=== PATIENT | female | born 1985 | race Caucasian/White ===

== ENCOUNTER 2017-07-22 16:44 | Inpatient (IN) | payer SELFPAY ==
--- NOTE | 2017-07-22 16:53 | PDOC ---
Rapid Medical Evaluation Time Seen by Provider: 07/22/17 16:51 Medical Evaluation: Allergies Allergy/AdvReac Type Severity Reaction Status Date / Time No Known Allergies Allergy Verified 07/22/17 16:46 07/22/17 16:52 Pt c/o: ruq pain with nausea x 2hrs, hx gallstones, pt on exam: ruq pain, no cva tenderness Pt ordered for: labs, urine, ultrasound p to proceed to the ED Discharge Disposition - Diagnosis Abdominal pain - Referrals - Patient Instructions - Post Discharge Activity
[2017-07-22 16:56] VITALS: BMI 34.4
[2017-07-22 17:15] LABS: BASO % 0.7 % (0-2.0); EOS % 3.8 % (0-4.5); HEMATOCRIT 35.5 % (32.4-45.2); HEMOGLOBIN 12.2 GM/dL (10.7-15.3); LYMPH % 22.7 % (8-40); MCH 28.5 pg (25.7-33.7); MCHC 34.4 g/dl (32.0-36.0); MEAN CELL VOLUME 82.9 fl (80-96); MEAN PLT VOLUME 10.3 fl (7.5-11.1); MONO % 8.2 % (3.8-10.2); NEUT % 64.6 % (42.8-82.8); PLATELET COUNT 213 K/MM3 (134-434); RBC 4.29 M/mm3 (3.60-5.2)
[2017-07-22 17:45] LABS: ALBUMIN 3.9 g/dl (3.4-5.0); ANION GAP 10 (8-16); BLOOD UREA NITROGEN 14 mg/dL (7-18); CHLORIDE 104 mmol/L (98-107); CO2 28 mmol/L (21-32); CREATININE 0.7 mg/dL (0.55-1.02); GLUCOSE,RANDOM 129 mg/dL (74-106); POTASSIUM 3.6 mmol/L (3.5-5.1); SGOT/AST 207 U/L (15-37); SGPT/ALT 134 U/L (12-78); SODIUM 142 mmol/L (136-145)
[2017-07-22 17:47] LABS: ALK PHOS 98 U/L (45-117); BILIRUBIN,TOTAL 0.7 mg/dL (0.2-1.0); TOT PROT 7.5 g/dl (6.4-8.2)
[2017-07-22 17:48] LABS: LIPASE 218 U/L (73-393)
[2017-07-22 17:54] LABS: HCG,QUALITATIVE URINE NEGATIVE
[2017-07-22] MEDS ORDERED: ONDANSETRON 4 MG/2 ML VIAL IVPUSH ONE (17:57)
--- NOTE | 2017-07-22 17:57 | PDOC ---
History of Present Illness - General Chief Complaint: Nausea/Vomiting Stated Complaint: UPPER ABDOMINAL PAIN Time Seen by Provider: 07/22/17 16:51 History Source: Patient Exam Limitations: No Limitations - History of Present Illness Initial Comments: 07/22/17 17:57 The patient is a 32F with no PMH who presents to the ER with abdominal pain and vomiting. The patient states that around 1430 today, she ate lunch and about a half hour after, felt RUQ abdominal pain with nausea and intractable vomiting. She states that she vomited her food but did not vomit blood or have bilious vomiting. She states that this happened twice last week but the symptoms did not last longer than an hour. Today, her symptoms lasted for longer than an hour and she became concerned. She denies any fever, chills, CP, SOB. Past History - Past Medical History Allergies/Adverse Reactions: Allergies Allergy/AdvReac Type Severity Reaction Status Date / Time No Known Allergies Allergy Verified 07/22/17 16:46 Home Medications: Ambulatory Orders NK [No Known Home Medication] 12/09/14 COPD: No - Suicide/Smoking/Psychosocial Hx Smoking History: Never smoked Hx Alcohol Use: No Drug/Substance Use Hx: No Review of Systems - Review of Systems Able to Perform ROS?: Yes Comments:: 07/22/17 18:08 GENERAL/CONSTITUTIONAL: No fever or chills. No weakness. HEAD, EYES, EARS, NOSE AND THROAT: No change in vision. No ear pain or discharge. No sore throat. CARDIOVASCULAR: No chest pain, palpitations, or lightheadedness. RESPIRATORY: No cough, wheezing, shortness of breath, or hemoptysis. GASTROINTESTINAL: Positive for nausea, vomiting, and abdominal pain. GENITOURINARY: No dysuria, frequency, hematuria, or change in urination. MUSCULOSKELETAL: No joint or muscle swelling or pain. No neck or back pain. SKIN: No rash or lesions. NEUROLOGIC: No headache, numbness, tingling, weakness, loss of consciousness, or change in strength/sensation. ENDOCRINE: No increased thirst. No abnormal weight change. HEMATOLOGIC/LYMPHATIC: No anemia, easy bleeding, or history of blood clots. ALLERGIC/IMMUNOLOGIC: No hives or skin allergy. Is the patient limited Welsh proficient: No *Physical Exam - Vital Signs Last Vital Signs Temp Pulse Resp BP Pulse Ox 98.2 F 50 L 20 90/49 100 07/22/17 16:47 07/22/17 16:47 07/22/17 16:47 07/22/17 16:47 07/22/17 16:47 - Physical Exam Comments: 07/22/17 18:09 GENERAL: Well developed, well nourished. Awake and alert. No acute distress. HEENT: Normocephalic, atraumatic. Hearing grossly normal. Moist mucous membranes. PERRLA, EOMI. No conjunctival pallor. Sclera are non-icteric. NECK: Supple. Full ROM. CARDIOVASCULAR: Regular rate and rhythm. No murmurs, rubs, or gallops. Distal pulses are 2+ and symmetric. PULMONARY: No evidence of respiratory distress. Lungs clear to auscultation bilaterally. No wheezing, rales or rhonchi. ABDOMINAL: Soft. Tender to RUQ with positive moore's sign. Mild tenderness to RLQ. Non-distended. No rebound or guarding. GENITOURINARY: No CVA tenderness bilaterally. MUSCULOSKELETAL: Normal range of motion at all joints. No bony deformities or tenderness. EXTREMITIES: No cyanosis. No clubbing. No edema. No calf tenderness. SKIN: Warm and dry. Normal capillary refill. No rashes. No jaundice. NEUROLOGICAL: Alert, awake, appropriate. Cranial nerves 2-12 intact. Normal speech. Gait is normal without ataxia. PSYCHIATRIC: Cooperative. Good eye contact. Appropriate mood and affect. ED Treatment Course - LABORATORY CBC & Chemistry Diagram: 07/22/17 17:00 07/22/17 17:00 - ADDITIONAL ORDERS Additional order review: Laboratory Results 07/22/17 07/22/17 17:15 17:00 Sodium 142 Potassium 3.6 Chloride 104 Carbon Dioxide 28 Anion Gap 10 BUN 14 Creatinine 0.7 Creat Clearance w eGFR > 60 Random Glucose 129 H Calcium 9.0 Total Bilirubin 0.7 D AST 207 H ALT 134 H Alkaline Phosphatase 98 Total Protein 7.5 Albumin 3.9 Lipase 218 Urine HCG, Qual Negative 07/22/17 17:00 RBC 4.29 MCV 82.9 MCHC 34.4 RDW 15.0 MPV 10.3 Neutrophils % 64.6 Lymphocytes % 22.7 D Monocytes % 8.2 Eosinophils % 3.8 Basophils % 0.7 Medical Decision Making - Medical Decision Making 05/10/18 18:10 The patient is a 32F with no PMH who presents with RUQ pain, + Moore's sign, increased LFT's, and biliary duct dilation on US. Will admit for choledocholithiasis and administer zofran and zosyn. 07/22/17 18:21 I endorsed the patient to Dr. Garcia for admission under Dr. Huitron. *DC/Admit/Observation/Transfer Diagnosis at time of Disposition: Abdominal pain, Choledocholithiasis - Discharge Dispostion Condition at time of disposition: Stable Decision to Admit order: Yes - Referrals Referrals: Jeremie Wood MD [Primary Care Provider] - - Patient Instructions - Post Discharge Activity
[2017-07-22 17:59] LABS: URINE APPEARANCE CLOUDY; URINE COLOR AMBER; URINE GLUCOSE (UA) NEGATIVE (NEGATIVE); URINE KETONE NEGATIVE (NEGATIVE); URINE LEUK ESTERASE TRACE (NEGATIVE); URINE NITRITE NEGATIVE (NEGATIVE); URINE UROBILINOGEN 4.0 E.U/dl mg/dL (0.2-1.0)
[2017-07-22 18:02] LABS: URINE PROTEIN 1+ (NEGATIVE)
[2017-07-22 18:04] LABS: EPI CELLS MANY /HPF (FEW); URINE MUCUS MANY
[2017-07-22] MEDS ORDERED: PIPERACILLIN/TAZOB 3.375 GM 3.375 GM in DEXTROSE 5%-WATER - 50 ML IVPB ONE (18:10)
--- NOTE | 2017-07-22 18:19 | PDOC ---
Attending Attestation - Resident Resident Name: SantiagoBeltran - ED Attending Attestation I have performed the following: I have examined & evaluated the patient, The case was reviewed & discussed with the resident, I agree w/resident's findings & plan, Exceptions are as noted - HPI HPI: 07/22/17 18:16 32-year-old female with past medical history of gallstones presents with right upper quadrant abdominal pain and nausea vomiting since today. Reports that she ate and started developing pain though somewhat to her prior gallstone attacks. No fevers or chills. - Physicial Exam PE: 07/22/17 18:17 GENERAL: Awake, alert, and fully oriented, in no acute distress. HEAD: No signs of trauma EYES: PERRLA, EOMI, sclera anicteric, conjunctiva clear ENT: Auricles normal inspection, hearing grossly normal, nares patent NECK: Normal ROM, supple ABDOMEN: Soft, TTP RUQ. No guarding, no rebound. No masses EXTREMITIES: Normal range of motion, no edema. No clubbing or cyanosis. No cords, erythema, or tenderness NEUROLOGICAL: Cranial nerves II through XII grossly intact. Normal speech, normal gait SKIN: Warm, Dry, normal turgor, no rashes or lesions noted. - Medical Decision Making 07/22/17 18:18 Vital Signs Temp Pulse Resp BP Pulse Ox 98.2 F 50 L 20 90/49 100 07/22/17 16:47 07/22/17 16:47 07/22/17 16:47 07/22/17 16:47 07/22/17 16:47 07/22/17 18:18 Ultrasound done shows cholelithiasis and dilated extrahepatic duct measuring 7 mm. This is concerning for choledocholithiasis. Patient be admitted for MRCP and likely ERCP. Consult GI. Admit.
[2017-07-22] MEDS ORDERED: PIPERACILLIN/TAZOB 3.375 GM 3.375 GM/50 ML BAG IVPB ONE (18:51)
[2017-07-22] MEDS ORDERED: ONDANSETRON 4 MG/2 ML VIAL ONE (18:52)
[2017-07-22] MEDS ORDERED: ONDANSETRON 4 MG/2 ML VIAL IVPUSH PRN (19:00)
[2017-07-22] MEDS ORDERED: SODIUM CHLORIDE 1,000 ML IV SCH ×2 (19:00→22:00)
--- NOTE | 2017-07-22 19:08 | HP ---
CHIEF COMPLAINT: abdominal pain PCP: Dr. Nehemias Zarco [facility] HISTORY OF PRESENT ILLNESS: 32 year old female with no past medical history presents to the hospital for intractable nausea/vomiting and abdominal pain that began earlier this afternoon after eating lunch. She states that she was asymptomatic until around 30 minutes after eating her lunch, after which she started to experience stabbing 9/10, RUQ abdominal pain radiating to her back, followed by non-bloody , non-bilious vomiting several times. She says this has happened 2 times over the past week which lasted for a shorter period of time. Prior to this, she had another episode of pain 2 years ago - she was told she had gallstones and told to eat a healthier diet. Patient is not on her menstrual period (LKMP 07/09). Denies fevers, chills, chest pain, shortness of breath, dysuria, frequency, urgency. ER course was notable for: (1) Transaminitis (AST 207, ALT 134) (2) US + for cholelithiasis and dilated extrahepatic bile duct 7mm (3) PAST MEDICAL HISTORY: none PAST SURGICAL HISTORY: none Social History: Smoking: none Alcohol: social Drugs: none Family History: mother: kidney disease, hypertension, DM, back abscess father: denies Allergies No Known Allergies Allergy (Verified 07/22/17 16:46) HOME MEDICATIONS: Home Medications Medication Instructions Recorded NK [No Known Home Medication] 12/09/14 REVIEW OF SYSTEMS CONSTITUTIONAL: Absent: fever, chills, diaphoresis, generalized weakness, malaise, loss of appetite, weight change HEENT: Absent: rhinorrhea, nasal congestion, throat pain, throat swelling, difficulty swallowing, mouth swelling, ear pain, eye pain, visual changes CARDIOVASCULAR: Absent: chest pain, syncope, palpitations, irregular heart rate, lightheadedness , peripheral edema RESPIRATORY: Absent: cough, shortness of breath, dyspnea with exertion, orthopnea, wheezing, stridor, hemoptysis GASTROINTESTINAL: abdominal pain, Absent: abdominal distension, nausea, vomiting, diarrhea, constipation, melena , hematochezia GENITOURINARY: Absent: dysuria, frequency, urgency, hesitancy, hematuria, flank pain, genital pain MUSCULOSKELETAL: Absent: myalgia, arthralgia, joint swelling, back pain, neck pain SKIN: Absent: rash, itching, pallor HEMATOLOGIC/IMMUNOLOGIC: Absent: easy bleeding, easy bruising, lymphadenopathy, frequent infections ENDOCRINE: Absent: unexplained weight gain, unexplained weight loss, heat intolerance, cold intolerance NEUROLOGIC: Absent: headache, focal weakness or paresthesias, dizziness, unsteady gait, seizure, mental status changes, bladder or bowel incontinence PSYCHIATRIC: Absent: anxiety, depression, suicidal or homicidal ideation, hallucinations. PHYSICAL EXAMINATION Vital Signs - 24 hr 07/22/17 16:47 Temperature 98.2 F Pulse Rate 50 L Respiratory 20 Rate Blood Pressure 90/49 O2 Sat by Pulse 100 Oximetry (%) GENERAL: A&Ox3, no acute distress EYES: PERRLA, EOMI ENT: Moist mucus membranes NECK: No JVD LUNGS: CTA, no wheezes HEART: RRR, no murmurs ABDOMEN: Soft, mildly tender to palpation in the RUQ, lazcano sign positive, no rebound tenderness, BS present MUSCULOSKELETAL: No CVA Tenderness EXTREMITIES: 2+ pulses, no edema. NEUROLOGICAL: Cranial nerves II-XII intact. Laboratory Results - last 24 hr 07/22/17 07/22/17 07/22/17 17:00 17:00 17:15 WBC 10.0 RBC 4.29 Hgb 12.2 Hct 35.5 MCV 82.9 MCH 28.5 MCHC 34.4 RDW 15.0 Plt Count 213 MPV 10.3 Neutrophils % 64.6 Lymphocytes % 22.7 D Monocytes % 8.2 Eosinophils % 3.8 Basophils % 0.7 Sodium 142 Potassium 3.6 Chloride 104 Carbon Dioxide 28 Anion Gap 10 BUN 14 Creatinine 0.7 Creat Clearance w eGFR > 60 Random Glucose 129 H Calcium 9.0 Total Bilirubin 0.7 D AST 207 H ALT 134 H Alkaline Phosphatase 98 Total Protein 7.5 Albumin 3.9 Lipase 218 Urine Color Jossy Urine Appearance Cloudy Urine pH 5.0 Ur Specific [place] 1.032 Urine Protein 1+ H Urine Glucose (UA) Negative Urine Ketones Negative Urine Blood 2+ H Urine Nitrite Negative Urine Bilirubin 2.0 Urine Urobilinogen 4.0 e.u/dl H Ur Leukocyte Esterase Trace Urine WBC (Auto) 17 Urine RBC (Auto) 25 Ur Epithelial Cells Many Urine Mucus Many Urine HCG, Qual Negative ASSESSMENT/PLAN: 32 yo F with no past medical history presents with abdominal pain, n/v and gallstones + dilated extrahepatic bile ducts found on ultrasound and is admitted for evaluation of choledocholithiasis #Abdominal Pain: likely 2/2 choledocholithiasis based on US results. Patient appears clinically improving with reduced abdominal pain - also on differential , a result of toxin-mediated reaction from food. -Keep NPO for now -IVF NS @ 125cc/hr -zofran PRN -Surgery Dr. Billings consult appreciated -GI consult Dr. Mcfarland appreciated -will likely need ERCP/MRCP evaluation and possible elective cholecystectomy after outpatient followup #FEN -IVF NS @ 125cc/hr -replete lytes in AM -NPO for GI evaluation #Prophylaxis -early ambulation #Disposition -admit for observation Visit type - Emergency Visit Emergency Visit: Yes ED Registration Date: 07/22/17 Care time: The patient presented to the Emergency Department on the above date and was hospitalized for further evaluation of their emergent condition. - New Patient This patient is new to me today: Yes Date on this admission: 07/23/17 - Critical Care Critical Care patient: No Hospitalist Screening - Colonoscopy Questionnaire Colonoscopy Questionnaire: Colonoscopy Questionnaire - Patient: 50 - 75 years old and never had a screening colonoscopy: Unknown History of colon or rectal polyps, or CA: Unknown History of IBD, Crohn's disease or UC: Unknown History of abdominal radiation therapy as a child: Unknown - Relative: 1 with colon or rectal CA, or polyps at age 60 or younger: Unknown Colon or rectal CA diagnosed at age 45 or younger: Unknown Multiple relatives with colon or rectal CA: Unknown - Outcome: Screening Result: Negative Screen
--- NOTE | 2017-07-22 21:54 | PN ---
Teaching Attending Note Name of Resident: Moi Isabel ATTENDING PHYSICIAN STATEMENT I saw and evaluated the patient. Chart, data reviewed. I reviewed the resident's note and discussed the case with the resident. I agree with the resident's findings and plan as documented. SUBJECTIVE: 32 year old woman with no significant past medical history c/o nausea and vomiting which started 5/10 afternoon 30min after eating lunch. Patient was c/o also of right upper quadrant pain. She denied any fevers or diarrhea. She reported eating sandwich with martin, ham, lettuce. No one else ate the same food as she did. OBJECTIVE: Last Vital Signs Temp Pulse Resp BP Pulse Ox 98.2 F 50 L 20 90/49 100 07/22/17 16:47 07/22/17 16:47 07/22/17 16:47 07/22/17 16:47 07/22/17 17:35 general -nad, aaox3 heent- atraumatic, moist oral mucosa neck- supple cor- s1+s2+rrr chest-cta b/l abdomen- soft, +lazcano's sign ext- no pedal edema Abnormal Lab Results 07/22/17 07/22/17 17:00 17:15 Random Glucose 129 H AST 207 H ALT 134 H Urine Protein 1+ H Urine Blood 2+ H Urine Urobilinogen 4.0 e.u/dl H Hepatobiliary u/s reviewed- showed gallstones but no cholecystitis, showed extrahepatic biliary duct dilatation- 7mm ASSESSMENT AND PLAN: #32yo woman with choledocholithiasis, gallstones but no cholecystitis. RUQ may be related to hepatobiliary disease, although transaminitis picture does not appear to be cholestatic. No evidence of ongoing infection. Nausea and vomiting may have been also related to staph preformed toxin as pt ate martin. -observation -surgery and GI evaluation -NPO past midnight -No antibiotics at this time -zofran prn if nausea/vomiting -IV fluid hydration -heparin sc for DVT ppx
[2017-07-23] MEDS ORDERED: HEPARIN NA (PORCINE) 5,000 UNITS/ML 1ML VIAL SQ SCH (02:00)
[2017-07-23 07:08] LABS: HEMATOCRIT 34.5 % (32.4-45.2); HEMOGLOBIN 11.6 GM/dL (10.7-15.3); MCHC 33.6 g/dl (32.0-36.0); MEAN CELL VOLUME 83.3 fl (80-96); MEAN PLT VOLUME 10.3 fl (7.5-11.1); PLATELET COUNT 180 K/MM3 (134-434); RBC 4.14 M/mm3 (3.60-5.2); RDW 14.9 % (11.6-15.6); WHITE BLOOD COUNT 6.8 K/mm3 (4.0-10.0)
[2017-07-23 07:15] LABS: ALBUMIN 3.2 g/dl (3.4-5.0); ANION GAP 6 (8-16); BLOOD UREA NITROGEN 11 mg/dL (7-18); CALCIUM 7.9 mg/dL (8.5-10.1); CHLORIDE 110 mmol/L (98-107); CO2 25 mmol/L (21-32); CREATININE 0.6 mg/dL (0.55-1.02); GLUCOSE,RANDOM 84 mg/dL (74-106); PHOSPHOROUS 3.2 mg/dL (2.5-4.9); POTASSIUM 3.8 mmol/L (3.5-5.1); SGOT/AST 389 U/L (15-37); SODIUM 141 mmol/L (136-145); TOT PROT 6.4 g/dl (6.4-8.2)
[2017-07-23 07:16] LABS: ALK PHOS 93 U/L (45-117); INR 1.08 (0.82-1.09); PROTHROMBIN TIME (PATIENT) 12.2 SEC (9.7-13.0)
[2017-07-23 07:23] LABS: SGPT/ALT 457 U/L (12-78)
--- NOTE | 2017-07-23 08:34 | CONSULT ---
- Consultation REQUESTING PROVIDER: Raji Manuelito CONSULT REQUEST: We have been asked to surgically evaluate this patient for recurrent RUQ pain PCP: Dax Huitron MD HPI: Called to magui 32 yo female with h/o symptomatic cholelithiasis. Admitted to hospital with with postprandial abd pain with n/v. RUQ abd pain began ~ 30 mins after eating food (ham/cheese/martin sandwhich). . Initially, pain was 9/10 RUQ-->radiated to right flank/upper back. Currently /10. She had 1 episode of nbnb vomiting. Last episode occurred 2 weeks ago (never sought medical attention ). Prior to this, she was last seen here at [facility] on 12/09/14 with same complaint - she was told she had gallstones and to eat a healthier diet. LMP . While in ED she had a U/S which identified cholelithiasis, no PC fluid or gb wall thickening.Mildly dilated extrahepatic bile duct 7mm. No evidnece of intrahepatic ductal dilation. Denies fevers, chills, chest pain, shortness of breath, dysuria, frequency, urgency. PMHx: Denies PSHx: Cholelithiasis (symptomatic) Home Meds: Denies Allergies: NKDA ROS: CONSTITUTIONAL: Absent: generalized weakness, malaise, loss of appetite, weight change CARDIOVASCULAR: Absent: syncope, lightheadedness, peripheral edema RESPIRATORY: Absent: wheezing, stridor, hemoptysis GASTROINTESTINAL:Absent: SEE HPI GENITOURINARY: Absent: urgency, hesitancy, hematuria MUSCULOSKELETAL: Absent: myalgia, arthralgia, joint swelling, back pain, neck pain SKIN: Absent: rash, itching, pallor HEMATOLOGIC/IMMUNOLOGIC: Absent: easy bleeding, easy bruising, lymphadenopathy NEUROLOGIC: Absent: paresthesias, dizziness, unsteady gait, seizure, mental status changes, bladder or bowel incontinence PSYCHIATRIC: Absent: anxiety, depression, suicidal or homicidal ideation, hallucinations. PE: GENERAL: Awake, alert, and fully oriented, nad HEAD: NC. AT EYES: PERRL, sclera anicteric, conjunctiva clear. NECK: Normal ROM, supple without lymphadenopathy, JVD, or masses. LUNGS: CTA bilat HEART: RRR ABDOMEN: obese. Soft. Mild RUQ ttp. No gurading. Negative Moore's. No rebound. No masses. No organomegaly. MUSCULOSKELETAL: Normal ROM at all joints. No bony deformities or tenderness. No CVA tenderness. UE: 2+ pulses, warm, well-perfused. No cyanosis. Cap refill <2 seconds. No peripheral edema. LE: 2+ pulses, warm, well-perfused. No calf tenderness. No peripheral edema. NEUROLOGICAL: Normal speech, gait not observed. PSYCH: Cooperative. Good eye contact. Appropriate mood and affect. SKIN: Warm, dry, normal turgor, no rashes or lesions noted. Last Vital Signs Temp Pulse Resp BP Pulse Ox 98.7 F 50 L 18 101/52 100 07/23/17 06:00 07/23/17 06:00 07/23/17 06:00 07/23/17 06:00 07/22/17 17:35 CBC, BMP 07/23/17 06:00 07/23/17 06:00 Hepatic Panel Total Bilirubin 1.0 mg/dL (0.2-1.0) D 07/23/17 06:00 AST 389 U/L (15-37) H 07/23/17 06:00 ALT 457 U/L (12-78) H 07/23/17 06:00 Alkaline Phosphatase 93 U/L (45-117) 07/23/17 06:00 Albumin 3.2 g/dl (3.4-5.0) L 07/23/17 06:00 LFT TREND 07/22/17 07/23/17 17:00 06:00 Total Bilirubin 0.7 1.0 AST 207 389 Alkaline Phosphatase 98 93 INR, PTT INR 1.08 (0.82-1.09) 07/23/17 06:00 Blood Type Blood Type O POSITIVE 07/23/17 06:00 Problem List - Problems (1) Cholelithiasis Assessment/Plan: 32 yo female with h/o cholelithiasis. U/S remains unchanged from previous U/S 2014 which confirms cholelithiasis, no PC fluid or gb wall thickening. Mildly dilated extrahepatic bile duct 7mm. No evidnece of intrahepatic ductal dilation. Transaminitis without leukocytosis. Afebrile. Recommend MRCP Surgical plan pending results of above imaging study OOB and ambulate Trend LFTs GI Consult Above plan discussed with Dr. Billings and agrees. Code(s): K80.20 - CALCULUS OF GALLBLADDER W/O CHOLECYSTITIS W/O OBSTRUCTION Qualifiers: Cholelithiasis location: gallbladder (2) Choledocholithiasis Code(s): K80.50 - CALCULUS OF BILE DUCT W/O CHOLANGITIS OR CHOLECYST W/O OBST
[2017-07-23] MEDS ORDERED: PIPERACILLIN/TAZOBACTAM 3.375 GM VIAL IVPB ONE ×3 (09:28→21:05)
[2017-07-23] MEDS ORDERED: DEXTROSE 5%-WATER - 50 ML IVPB ONE ×3 (09:29→21:06)
[2017-07-23] MEDS: PIPERACILLIN/TAZOB 3.375 GM 3.375 GM in DEXTROSE 5%-WATER - 50 ML IVPB SCH ×3 (10:12→21:21)
[2017-07-23] MEDS: DEXTROSE 5%-NORMAL SALINE 1,000 ML IV SCH (10:13)
--- NOTE | 2017-07-23 15:03 | PN ---
Progress Note (short form) - Note Progress Note: ID consult dictated recurrent RUQ pain possible choledocholithiasis for MRCP currently on zosyn sono- no cholycystitis f/u MRCP continue zosyn for now Problem List - Problems (1) Choledocholithiasis Code(s): K80.50 - CALCULUS OF BILE DUCT W/O CHOLANGITIS OR CHOLECYST W/O OBST (2) Cholelithiasis Code(s): K80.20 - CALCULUS OF GALLBLADDER W/O CHOLECYSTITIS W/O OBSTRUCTION Qualifiers: Cholelithiasis location: gallbladder
--- NOTE | 2017-07-23 15:37 | CON.GI ---
Consult Consult Specialty:: GI Reason for Consultation:: postprandial abdominal pain - History of Present Illness History of Present Illness: 32-year-old female with at least 3 months history of postprandial epigastric abdominal pain lasting one hour, alleviated by rest, associated with nausea without vomiting, or diarrhea. Reports chills. Denies jaundice, dysphagia, odynophagia, chronic GERD-like symptoms. Denies significant weight loss, changes in appetite, changes in stool caliber. came to the emergency room because the above-mentioned pain lasted longer than usual. While in EGD, ultrasound of the liver showed cholelithiasis without signs of inflammation. On physical exam patient has positive Moore's otherwise asymptomatic. Afebrile. AST and ALT in 400s with normal total bili and alk phos. Normal CBC. Normal lipase. - History Source History Provided By: Patient, Transfer Record - Past Medical History ...LMP: 07/06/17 ...: No - Alcohol/Substance Use Hx Alcohol Use: No - Smoking History Smoking history: Never smoked Have you smoked in the past 12 months: Yes Home Medications - Allergies Allergies/Adverse Reactions: Allergies Allergy/AdvReac Type Severity Reaction Status Date / Time No Known Allergies Allergy Verified 07/22/17 16:46 - Home Medications Home Medications: Ambulatory Orders NK [No Known Home Medication] 12/09/14 Family Disease History - Family Disease History Family History: Unremarkable (Noncontributory) Review of Systems Findings/Remarks: as per H&P and HPI Physical Exam-GI Vital Signs: Vital Signs Temperature 98.1 F 07/23/17 13:23 Pulse Rate 50 L 07/23/17 06:00 Respiratory Rate 18 07/23/17 13:23 Blood Pressure 101/61 07/23/17 13:23 O2 Sat by Pulse Oximetry (%) 100 07/22/17 17:35 Constitutional: Yes: Well Nourished, No Distress, Calm Eyes: Yes: Conjunctiva Clear HENT: Yes: Atraumatic Neck: Yes: Supple Cardiovascular: Yes: Regular Rate and Rhythm Respiratory: Yes: Regular ...Auscultate: Yes: Normoactive Bowel Sounds Neurological: Yes: Alert, Oriented Labs: CBC, BMP 07/23/17 06:00 07/23/17 06:00 INR, PTT INR 1.08 (0.82-1.09) 07/23/17 06:00 Laboratory Last Values WBC 6.8 K/mm3 (4.0-10.0) D 07/23/17 06:00 RBC 4.14 M/mm3 (3.60-5.2) 07/23/17 06:00 Hgb 11.6 GM/dL (10.7-15.3) 07/23/17 06:00 Hct 34.5 % (32.4-45.2) 07/23/17 06:00 MCV 83.3 fl (80-96) 07/23/17 06:00 MCH 28.0 pg (25.7-33.7) 07/23/17 06:00 MCHC 33.6 g/dl (32.0-36.0) 07/23/17 06:00 RDW 14.9 % (11.6-15.6) 07/23/17 06:00 Plt Count 180 K/MM3 (134-434) 07/23/17 06:00 MPV 10.3 fl (7.5-11.1) 07/23/17 06:00 Neutrophils % 64.6 % (42.8-82.8) 07/22/17 17:00 Lymphocytes % 22.7 % (8-40) D 07/22/17 17:00 Monocytes % 8.2 % (3.8-10.2) 07/22/17 17:00 Eosinophils % 3.8 % (0-4.5) 07/22/17 17:00 Basophils % 0.7 % (0-2.0) 07/22/17 17:00 PT with INR 12.20 SEC (9.7-13.0) 07/23/17 06:00 INR 1.08 (0.82-1.09) 07/23/17 06:00 Sodium 141 mmol/L (136-145) 07/23/17 06:00 Potassium 3.8 mmol/L (3.5-5.1) 07/23/17 06:00 Chloride 110 mmol/L (98-107) H 07/23/17 06:00 Carbon Dioxide 25 mmol/L (21-32) 07/23/17 06:00 Anion Gap 6 (8-16) L 07/23/17 06:00 BUN 11 mg/dL (7-18) 07/23/17 06:00 Creatinine 0.6 mg/dL (0.55-1.02) 07/23/17 06:00 Creat Clearance w eGFR > 60 (>60) 07/23/17 06:00 Random Glucose 84 mg/dL (74-106) 07/23/17 06:00 Calcium 7.9 mg/dL (8.5-10.1) L 07/23/17 06:00 Phosphorus 3.2 mg/dL (2.5-4.9) 07/23/17 06:00 Magnesium 2.0 mg/dL (1.8-2.4) 07/23/17 06:00 Total Bilirubin 1.0 mg/dL (0.2-1.0) D 07/23/17 06:00 AST 389 U/L (15-37) H 07/23/17 06:00 ALT 457 U/L (12-78) H 07/23/17 06:00 Alkaline Phosphatase 93 U/L (45-117) 07/23/17 06:00 Total Protein 6.4 g/dl (6.4-8.2) 07/23/17 06:00 Albumin 3.2 g/dl (3.4-5.0) L 07/23/17 06:00 Lipase 218 U/L (73-393) 07/22/17 17:00 Urine Color Jossy 07/22/17 17:15 Urine Appearance Cloudy 07/22/17 17:15 Urine pH 5.0 (5.0-8.0) 07/22/17 17:15 Ur Specific [place] 1.032 (1.001-1.035) 07/22/17 17:15 Urine Protein 1+ (NEGATIVE) H 07/22/17 17:15 Urine Glucose (UA) Negative (NEGATIVE) 07/22/17 17:15 Urine Ketones Negative (NEGATIVE) 07/22/17 17:15 Urine Blood 2+ (NEGATIVE) H 07/22/17 17:15 Urine Nitrite Negative (NEGATIVE) 07/22/17 17:15 Urine Bilirubin 2.0 (<2.0 mg/dL) 07/22/17 17:15 Urine Urobilinogen 4.0 e.u/dl mg/dL (0.2-1.0) H 07/22/17 17:15 Ur Leukocyte Esterase Trace (NEGATIVE) 07/22/17 17:15 Urine WBC (Auto) 17 /hpf (3-5) 07/22/17 17:15 Urine RBC (Auto) 25 /hpf (0-3) 07/22/17 17:15 Ur Epithelial Cells Many /HPF (FEW) 07/22/17 17:15 Urine Mucus Many 07/22/17 17:15 Urine HCG, Qual Negative 07/22/17 17:15 Blood Type O POSITIVE 07/23/17 06:00 Antibody Screen Negative 07/23/17 06:00 Problem List - Problems (1) Transaminitis Code(s): R74.0 - NONSPEC ELEV OF LEVELS OF TRANSAMNS & LACTIC ACID DEHYDRGNSE (2) Cholelithiasis Code(s): K80.20 - CALCULUS OF GALLBLADDER W/O CHOLECYSTITIS W/O OBSTRUCTION (3) Epigastric abdominal pain Code(s): R10.13 - EPIGASTRIC PAIN (4) Positive Moore's Sign Code(s): R19.8 - OTH SYMPTOMS AND SIGNS INVOLVING THE DGSTV SYS AND ABDOMEN (5) Cholelithiasis Code(s): K80.20 - CALCULUS OF GALLBLADDER W/O CHOLECYSTITIS W/O OBSTRUCTION Qualifiers: Cholelithiasis location: gallbladder Assessment/Plan A 32-year-old female with most likely symptomat cholelithiasis and mild hepatitis. No signs of biliary ductal obstruction at this point. Nontoxic appearing. Agree with bowel rest, MRCP, serial liver chemistry with alk phos and total bili, lipase. IV fluids. pain and nausea management as needed. Sx on the case. Obtain viral serology.
--- NOTE | 2017-07-23 16:17 | PN ---
Physical Exam: SUBJECTIVE: Patient seen and examined. Says pain is improved. No fevers overnight. Is NPO, has not vomited. OBJECTIVE: Vital Signs Period Temp Pulse Resp BP Sys/Lopez Pulse Ox Last 24 Hr 97.8 F-98.7 F 45-66 17-20 90-112/49-61 100-100 Vital Signs Temp 98.1 F 07/23/17 13:23 Pulse 66 07/23/17 10:00 Resp 18 07/23/17 13:23 BP 101/61 07/23/17 13:23 Pulse Ox 100 07/23/17 13:21 Intake & Output 07/22/17 07/23/17 07/23/17 23:59 11:59 23:59 Weight 82.667 kg Other: Voiding Method Toilet Toilet Toilet # Unmeasured Voids Void 2 Height 1.55 m Body Mass Index (BMI) 34.4 Weight Measurement Method Est/Stated by Patient GENERAL: The patient is awake, alert, and fully oriented, in no acute distress. EYES: sclera anicteric ENT: oropharynx clear without exudates, moist mucous membranes. LUNGS: Breath sounds equal, clear to auscultation bilaterally, no wheezes, no crackles, no accessory muscle use. HEART: Regular rate and rhythm, S1, S2 ABDOMEN: Soft, tender RUQ, murphys+, nondistended, normoactive bowel sounds, no guarding, no rebound, EXTREMITIES: 2+ pulses, warm, well-perfused, no edema. NEUROLOGICAL: Cranial nerves II through XII grossly intact. Normal speech, gait not observed. CBC, BMP 07/23/17 06:00 07/23/17 06:00 Abnormal Lab Results 07/22/17 07/22/17 07/23/17 17:00 17:15 06:00 Chloride 110 H Anion Gap 6 L Random Glucose 129 H Calcium 7.9 L AST 207 H 389 H ALT 134 H 457 H Albumin 3.2 L Urine Protein 1+ H Urine Blood 2+ H Urine Urobilinogen 4.0 e.u/dl H Laboratory Results - last 24 hr 07/22/17 07/22/17 07/22/17 17:00 17:00 17:15 WBC 10.0 RBC 4.29 Hgb 12.2 Hct 35.5 MCV 82.9 MCH 28.5 MCHC 34.4 RDW 15.0 Plt Count 213 MPV 10.3 Neutrophils % 64.6 Lymphocytes % 22.7 D Monocytes % 8.2 Eosinophils % 3.8 Basophils % 0.7 PT with INR INR Sodium 142 Potassium 3.6 Chloride 104 Carbon Dioxide 28 Anion Gap 10 BUN 14 Creatinine 0.7 Creat Clearance w eGFR > 60 Random Glucose 129 H Calcium 9.0 Phosphorus Magnesium Total Bilirubin 0.7 D AST 207 H ALT 134 H Alkaline Phosphatase 98 Total Protein 7.5 Albumin 3.9 Lipase 218 Urine Color Jossy Urine Appearance Cloudy Urine pH 5.0 Ur Specific [place] 1.032 Urine Protein 1+ H Urine Glucose (UA) Negative Urine Ketones Negative Urine Blood 2+ H Urine Nitrite Negative Urine Bilirubin 2.0 Urine Urobilinogen 4.0 e.u/dl H Ur Leukocyte Esterase Trace Urine WBC (Auto) 17 Urine RBC (Auto) 25 Ur Epithelial Cells Many Urine Mucus Many Urine HCG, Qual Negative Blood Type Antibody Screen 07/23/17 07/23/17 07/23/17 06:00 06:00 06:00 WBC 6.8 D RBC 4.14 Hgb 11.6 Hct 34.5 MCV 83.3 MCH 28.0 MCHC 33.6 RDW 14.9 Plt Count 180 MPV 10.3 Neutrophils % Lymphocytes % Monocytes % Eosinophils % Basophils % PT with INR 12.20 INR 1.08 Sodium 141 Potassium 3.8 Chloride 110 H Carbon Dioxide 25 Anion Gap 6 L BUN 11 Creatinine 0.6 Creat Clearance w eGFR > 60 Random Glucose 84 Calcium 7.9 L Phosphorus 3.2 Magnesium 2.0 Total Bilirubin 1.0 D AST 389 H ALT 457 H Alkaline Phosphatase 93 Total Protein 6.4 Albumin 3.2 L Lipase Urine Color Urine Appearance Urine pH Ur Specific [place] Urine Protein Urine Glucose (UA) Urine Ketones Urine Blood Urine Nitrite Urine Bilirubin Urine Urobilinogen Ur Leukocyte Esterase Urine WBC (Auto) Urine RBC (Auto) Ur Epithelial Cells Urine Mucus Urine HCG, Qual Blood Type Antibody Screen 07/23/17 06:00 WBC RBC Hgb Hct MCV MCH MCHC RDW Plt Count MPV Neutrophils % Lymphocytes % Monocytes % Eosinophils % Basophils % PT with INR INR Sodium Potassium Chloride Carbon Dioxide Anion Gap BUN Creatinine Creat Clearance w eGFR Random Glucose Calcium Phosphorus Magnesium Total Bilirubin AST ALT Alkaline Phosphatase Total Protein Albumin Lipase Urine Color Urine Appearance Urine pH Ur Specific [place] Urine Protein Urine Glucose (UA) Urine Ketones Urine Blood Urine Nitrite Urine Bilirubin Urine Urobilinogen Ur Leukocyte Esterase Urine WBC (Auto) Urine RBC (Auto) Ur Epithelial Cells Urine Mucus Urine HCG, Qual Blood Type O POSITIVE Antibody Screen Negative US - cholelithiasis and dilated extrahepatic bile duct 7mm MRCP- 07/22/17: Mild dilation of CBD and CHD. Choledocholithiasis with numerous stones in CBD, CHD,and R hepatic duct Cholecystolithiasis with no definite stones identified in the cystic duct. There is no evidence of acute cholecystitis or pancreatitis Active Medications Generic Name Dose Route Start Last Admin Trade Name Freq PRN Reason Stop Dose Admin Piperacillin Sod/Tazobactam 50 mls @ 100 mls/hr 07/23/17 09:00 07/23/17 15:20 Sod 3.375 gm/ Dextrose IVPB 100 mls/hr Q6H-IV HEATHER Administration Protocol Dextrose/Sodium Chloride 1,000 mls @ 125 mls/hr 07/23/17 08:30 07/23/17 10:13 D5-Ns - IV 125 mls/hr ASDIR HEATHER Administration Ondansetron HCl 4 mg 07/22/17 19:00 Zofran Injection IVPUSH Q8H PRN NAUSEA ASSESSMENT/PLAN: 32 yo F with no past medical history presents with abdominal pain, n/v and gallstones + dilated extrahepatic bile ducts found on ultrasound and is admitted for evaluation of choledocholithiasis #Abdominal Pain: -likely 2/2 choledocholithiasis and Cholecystolithiasis -Positive Mickleton sign, worsening Liver enzymes, presence of stones with dilation -Still NPO for now -IVF D5/NS @ 125cc/hr -zofran PRN -Surgery Dr. Billings consult appreciated -GI consult Dr. Mcfarland appreciated -MRCP- done -ERCP and inpatient cholecystectomy during this admission -Cont iv zosyn #FEN -IVF NS @ 125cc/hr -replete lytes in AM -NPO for GI evaluation- appreciate Dr Mcfarland's recs #Prophylaxis -early ambulation #Disposition Visit type - Emergency Visit Emergency Visit: Yes ED Registration Date: 07/23/17 Care time: The patient presented to the Emergency Department on the above date and was hospitalized for further evaluation of their emergent condition. - New Patient This patient is new to me today: Yes Date on this admission: 07/23/17 - Critical Care Critical Care patient: No - Discharge Referral Referred to [facility] No
--- NOTE | 2017-07-23 18:27 | PN ---
Teaching Attending Note Name of Resident: Amina Lorin Thao ATTENDING PHYSICIAN STATEMENT I saw and evaluated the patient. I reviewed the resident's note and discussed the case with the resident. I agree with the resident's findings and plan as documented with exceptions below. SUBJECTIVE: Patient seen and examined. still with abdominal pain, no nausea, vomiting or fevers. OBJECTIVE: Vital Signs Period Temp Pulse Resp BP Sys/Lopez Pulse Ox Last 24 Hr 97.8 F-98.7 F 45-66 17-18 101-112/52-61 100 Intake & Output 07/20/17 07/21/17 07/22/17 07/23/17 23:59 23:59 23:59 23:59 Weight 182 lb 4 oz General: sitting in bed in no acute distress Abdomen :soft, RMQ mild tenderness, RUQ tenderness with positive Moore's sign, no voluntary or involuntary guarding or rigidity, positive bowel sounds Home Medication List Medication Instructions Recorded Confirmed Type NK [No Known Home Medication] 12/09/14 12/09/14 History Active Medications Generic Name Dose Route Start Last Admin Trade Name Freq PRN Reason Stop Dose Admin Piperacillin Sod/Tazobactam 50 mls @ 100 mls/hr 07/23/17 09:00 07/23/17 15:20 Sod 3.375 gm/ Dextrose IVPB 100 mls/hr Q6H-IV HEATHER Administration Protocol Dextrose/Sodium Chloride 1,000 mls @ 125 mls/hr 07/23/17 08:30 07/23/17 10:13 D5-Ns - IV 125 mls/hr ASDIR HEATHER Administration Ondansetron HCl 4 mg 07/22/17 19:00 Zofran Injection IVPUSH Q8H PRN NAUSEA Laboratory Results - last 24 hr 07/23/17 07/23/17 07/23/17 06:00 06:00 06:00 WBC 6.8 D RBC 4.14 Hgb 11.6 Hct 34.5 MCV 83.3 MCH 28.0 MCHC 33.6 RDW 14.9 Plt Count 180 MPV 10.3 PT with INR 12.20 INR 1.08 Sodium 141 Potassium 3.8 Chloride 110 H Carbon Dioxide 25 Anion Gap 6 L BUN 11 Creatinine 0.6 Creat Clearance w eGFR > 60 Random Glucose 84 Calcium 7.9 L Phosphorus 3.2 Magnesium 2.0 Total Bilirubin 1.0 D AST 389 H ALT 457 H Alkaline Phosphatase 93 Total Protein 6.4 Albumin 3.2 L Blood Type Antibody Screen 07/23/17 06:00 WBC RBC Hgb Hct MCV MCH MCHC RDW Plt Count MPV PT with INR INR Sodium Potassium Chloride Carbon Dioxide Anion Gap BUN Creatinine Creat Clearance w eGFR Random Glucose Calcium Phosphorus Magnesium Total Bilirubin AST ALT Alkaline Phosphatase Total Protein Albumin Blood Type O POSITIVE Antibody Screen Negative Abdominal US noted ASSESSMENT AND PLAN: 32 yof with no significant PMHX here with Cholelithiasis and possible Acute cholecystitis +/- Choledochothiasis -Cholelithiasis with likely Acute cholecysttiis -Possible choledocholithiasis, r/o cholangitis Plan: LFTs worse, check MRCP, serial abdominal exam. Emperic zosyn, ID input. SUrgery/GI input noted. ERCP pending MRCP and lFts and anticipate ccy prior to d.c plan discussed with patient in detail, all questions answered.
[2017-07-24] MEDS: DEXTROSE 5%-NORMAL SALINE 1,000 ML IV SCH ×3 (00:16→19:30)
[2017-07-24] MEDS ORDERED: DEXTROSE 5%-WATER - 50 ML IVPB ONE ×4 (02:22→20:23)
[2017-07-24] MEDS ORDERED: PIPERACILLIN/TAZOBACTAM 3.375 GM VIAL IVPB ONE ×4 (02:22→20:22)
[2017-07-24] MEDS: PIPERACILLIN/TAZOB 3.375 GM 3.375 GM in DEXTROSE 5%-WATER - 50 ML IVPB SCH ×4 (02:36→21:33)
[2017-07-24 07:30] LABS: BASO % 1.2 % (0-2.0); EOS % 4.2 % (0-4.5); HEMATOCRIT 32.2 % (32.4-45.2); HEMOGLOBIN 10.6 GM/dL (10.7-15.3); LYMPH % 38.4 % (8-40); MCH 27.8 pg (25.7-33.7); MCHC 33.1 g/dl (32.0-36.0); MEAN CELL VOLUME 84.2 fl (80-96); MEAN PLT VOLUME 10.1 fl (7.5-11.1); MONO % 10.1 % (3.8-10.2); NEUT % 46.1 % (42.8-82.8); PLATELET COUNT 155 K/MM3 (134-434); RBC 3.82 M/mm3 (3.60-5.2); WHITE BLOOD COUNT 5.6 K/mm3 (4.0-10.0)
[2017-07-24 07:43] LABS: INR 1.1 (0.82-1.09); PROTHROMBIN TIME (PATIENT) 12.4 SEC (9.7-13.0)
[2017-07-24 08:25] LABS: CHLORIDE 111 mmol/L (98-107); POTASSIUM 3.9 mmol/L (3.5-5.1); SODIUM 144 mmol/L (136-145)
[2017-07-24 08:39] LABS: ALK PHOS 71 U/L (45-117); ANION GAP 6 (8-16); BILIRUBIN,TOTAL 1.1 mg/dL (0.2-1.0); BLOOD UREA NITROGEN 10 mg/dL (7-18); CALCIUM 8.1 mg/dL (8.5-10.1); CO2 27 mmol/L (21-32); CREATININE 0.7 mg/dL (0.55-1.02); GLUCOSE,RANDOM 96 mg/dL (74-106); PHOSPHOROUS 3.5 mg/dL (2.5-4.9); SGOT/AST 133 U/L (15-37); SGPT/ALT 273 U/L (12-78); TOT PROT 6.3 g/dl (6.4-8.2)
[2017-07-24 08:40] LABS: LIPASE 302 U/L (73-393)
--- NOTE | 2017-07-24 09:56 | PN ---
Teaching Attending Note Name of Resident: Dax Huitron SUBJECTIVE: Patient seen and examined. Abdominal pain improved, no nausea, vomiting, fevers or chills. OBJECTIVE: Vital Signs Period Temp Pulse Resp BP Sys/Lopez Pulse Ox Last 24 Hr 97.9 F-98.1 F 56-66 17-19 96-111/55-61 100-100 Intake & Output 07/21/17 07/22/17 07/23/17 07/24/17 23:59 23:59 23:59 23:59 Intake Total 1575 Balance 1575 Weight 182 lb 4 oz general: sitting in bed in no acute distress Abdomen:soft, Improved RUQ tenderness, ND, no voluntray or involuntary guarding or rigidity Extremities: no edema Chest: CTAB, no rales or wheezing Home Medication List Medication Instructions Recorded Confirmed Type NK [No Known Home Medication] 12/09/14 12/09/14 History Active Medications Generic Name Dose Route Start Last Admin Trade Name Freq PRN Reason Stop Dose Admin Piperacillin Sod/Tazobactam 50 mls @ 100 mls/hr 07/23/17 09:00 07/24/17 10:33 Sod 3.375 gm/ Dextrose IVPB 100 mls/hr Q6H-IV HEATHER Administration Protocol Dextrose/Sodium Chloride 1,000 mls @ 125 mls/hr 07/23/17 08:30 07/24/17 10:32 D5-Ns - IV 125 mls/hr ASDIR HEATHER Administration Ondansetron HCl 4 mg 07/22/17 19:00 Zofran Injection IVPUSH Q8H PRN NAUSEA Laboratory Results - last 24 hr 07/24/17 07/24/17 07/24/17 06:00 06:00 06:00 WBC 5.6 RBC 3.82 Hgb 10.6 L Hct 32.2 L MCV 84.2 MCH 27.8 MCHC 33.1 RDW 15.0 Plt Count 155 MPV 10.1 Neutrophils % 46.1 D Lymphocytes % 38.4 D Monocytes % 10.1 Eosinophils % 4.2 Basophils % 1.2 PT with INR 12.40 INR 1.10 Sodium 144 Potassium 3.9 Chloride 111 H Carbon Dioxide 27 Anion Gap 6 L BUN 10 Creatinine 0.7 Creat Clearance w eGFR > 60 Random Glucose 96 Calcium 8.1 L Phosphorus 3.5 Magnesium 2.0 Total Bilirubin 1.1 H AST 133 H ALT 273 H Alkaline Phosphatase 71 Total Protein 6.3 L Albumin 3.0 L Lipase 302 MRCP results noted. ASSESSMENT AND PLAN: 32 yof with no significant PMHX here with Cholelithiasis and possible Acute cholecystitis +/- Choledochothiasis -Cholelithiasis with likely Acute cholecysttiis -Choledocholithiasis, r/o cholangitis Plan: LFTs improved. MRCP noted. DIscuss with GI (Dr. Alvarez covering for Dr. Vivas). Anticipate ERCP on Wednesday unless clinical deterioration. Continue Zosyn day 3, monitor vitals and symptoms closely. Surgery input noted. Dispo pending ERCP and CCY based on clinical course. plan discussed with patient in detail, all questions answered.
--- NOTE | 2017-07-24 11:18 | PN ---
Progress Note (short form) - Note Progress Note: Attending Surgeon No c/o; MRCP findings noted; wants to eat VSS AF abdomen-soft; flat and non tender Labs noted IMP:cholelithiasis; choledocholithiasis PLAN:ERCP and related procedures and then lap rizwana possible open on this admission; a/a/u by the patient; trial of clear liquids. Raji Billings MD FACS
--- NOTE | 2017-07-24 15:39 | PN ---
GI Progress Note Subjective: GI FOR DR ALBA PT FEELING BETTER MINIMAL DISCOMFORT NO N/V/F/C/S TOLERATING LIQUIDS LESS PAIN - Objective Vital Signs: Vital Signs Temperature 98.3 F 07/24/17 13:46 Pulse Rate 51 L 07/24/17 13:46 Respiratory Rate 07/24/17 13:46 Blood Pressure 106/66 07/24/17 13:46 O2 Sat by Pulse Oximetry (%) 100 07/24/17 05:00 Constitutional: Well Nourished, No Distress, Calm (+BS/ VERY SOFT/ MIN TENDER IN EPIGASTRIC ABND RUQ REGION NO GUARDING) Eyes: Yes: WNL Labs: CBC, BMP 07/24/17 06:00 07/24/17 06:00 INR, PTT INR 1.10 (0.82-1.09) 07/24/17 06:00 Assessment/Plan 32F WITH CHOLELITHIASIS AND CHOLEDOCHOLITHIASIS WITHOUT EVIDENCE OF CHOLANGITIS APPEARS IN NO DISTRESS ON ABX ON CLEARS PO PT WILL NEED ERCP PRIOR TO LC WILL PLAN BASED ON ENDO SCHEDULE NO EVIDENCE OF CHOPLANGITIS OR DECOMPENSATION AT THIS TIME PLEASE KEEP NPO AT MN EXCEPT MEDS WEDNESDAY FOR POSSIBLE ERCP WEDNESDAY 07/26 PROCEDURE D/W PT F/U LABS/PT/INR MD MALLY
[2017-07-25] MEDS ORDERED: PIPERACILLIN/TAZOBACTAM 3.375 GM VIAL IVPB ONE ×4 (01:49→21:12)
[2017-07-25] MEDS ORDERED: DEXTROSE 5%-WATER - 50 ML IVPB ONE ×4 (01:50→21:12)
[2017-07-25] MEDS: PIPERACILLIN/TAZOB 3.375 GM 3.375 GM in DEXTROSE 5%-WATER - 50 ML IVPB SCH ×4 (02:52→21:44)
[2017-07-25] MEDS: DEXTROSE 5%-NORMAL SALINE 1,000 ML IV SCH (06:15)
[2017-07-25 06:38] LABS: HEP.C VIRUS AB <0.1 s/co ratio (0.0-0.9)
[2017-07-25 08:33] LABS: BASO % 0.7 % (0-2.0); EOS % 3.6 % (0-4.5); HEMATOCRIT 31.8 % (32.4-45.2); HEMOGLOBIN 10.6 GM/dL (10.7-15.3); LYMPH % 36.7 % (8-40); MCH 28.1 pg (25.7-33.7); MCHC 33.3 g/dl (32.0-36.0); MEAN CELL VOLUME 84.4 fl (80-96); MEAN PLT VOLUME 10.7 fl (7.5-11.1); MONO % 11.3 % (3.8-10.2); NEUT % 47.7 % (42.8-82.8); PLATELET COUNT 153 K/MM3 (134-434); RBC 3.77 M/mm3 (3.60-5.2); RDW 15.2 % (11.6-15.6); WHITE BLOOD COUNT 5.9 K/mm3 (4.0-10.0)
[2017-07-25 09:01] LABS: ANION GAP 6 (8-16); BILIRUBIN,DIRECT < 0.2 mg/dL (0.0-0.2); BLOOD UREA NITROGEN 5 mg/dL (7-18); CALCIUM 7.6 mg/dL (8.5-10.1); CHLORIDE 111 mmol/L (98-107); CO2 27 mmol/L (21-32); CREATININE 0.7 mg/dL (0.55-1.02); GLUCOSE,RANDOM 93 mg/dL (74-106); MAGNESIUM 1.9 mg/dL (1.8-2.4); PHOSPHOROUS 3.7 mg/dL (2.5-4.9); POTASSIUM 3.7 mmol/L (3.5-5.1); SGOT/AST 67 U/L (15-37); SGPT/ALT 187 U/L (12-78); SODIUM 144 mmol/L (136-145)
[2017-07-25 09:02] LABS: ALK PHOS 60 U/L (45-117); BILIRUBIN,TOTAL 0.7 mg/dL (0.2-1.0); TOT PROT 6.3 g/dl (6.4-8.2)
[2017-07-25] MEDS: morphine SULFATE 4 MG/ML VIAL IVPUSH PRN (15:29)
--- NOTE | 2017-07-25 15:45 | PN ---
Teaching Attending Note Name of Resident: Dax Huitron SUBJECTIVE: Patient seen and examined. some abdominal pain but improved. No new fevers/ chills, nausea or vomitting. OBJECTIVE: Vital Signs Period Temp Pulse Resp BP Sys/Lopez Pulse Ox Last 24 Hr 98.0 F-99.2 F 47-96 18-20 95-112/47-57 100-100 Intake & Output 07/22/17 07/23/17 07/24/17 07/25/17 23:59 23:59 23:59 23:59 Intake Total 3325 1500 Balance 3325 1500 Weight 182 lb 4 oz General; Sitting in bed, no acute distress Abdomen:soft, epigastric and RUQ tenderness minimal improvement, no voluntary or involuntary guarding or rigidity, positive bowel sounds extremities: no edema Chest: CTAB, no rales or wheezing Home Medication List Medication Instructions Recorded Confirmed Type NK [No Known Home Medication] 12/09/14 12/09/14 History Active Medications Generic Name Dose Route Start Last Admin Trade Name Freq PRN Reason Stop Dose Admin Piperacillin Sod/Tazobactam 50 mls @ 100 mls/hr 07/23/17 09:00 07/25/17 15:30 Sod 3.375 gm/ Dextrose IVPB 100 mls/hr Q6H-IV HEATHER Administration Protocol Dextrose/Sodium Chloride 1,000 mls @ 125 mls/hr 07/23/17 08:30 07/25/17 06:15 D5-Ns - IV 125 mls/hr ASDIR HEATHER Administration Morphine Sulfate 0.5 mg 07/25/17 15:12 07/25/17 15:29 Morphine Sulfate IVPUSH 0.5 mg Q4H PRN Administration PAIN LEVEL 7 - 10 Ondansetron HCl 4 mg 07/22/17 19:00 Zofran Injection IVPUSH Q8H PRN NAUSEA Laboratory Results - last 24 hr 07/23/17 07/25/17 07/25/17 09:10 07:09 07:09 WBC 5.9 RBC 3.77 Hgb 10.6 L Hct 31.8 L MCV 84.4 MCH 28.1 MCHC 33.3 RDW 15.2 Plt Count 153 MPV 10.7 Neutrophils % 47.7 Lymphocytes % 36.7 Monocytes % 11.3 H Eosinophils % 3.6 Basophils % 0.7 Sodium 144 Potassium 3.7 Chloride 111 H Carbon Dioxide 27 Anion Gap 6 L BUN 5 L Creatinine 0.7 Random Glucose 93 Calcium 7.6 L Phosphorus 3.7 Magnesium 1.9 Total Bilirubin 0.7 D Direct Bilirubin < 0.2 AST 67 H ALT 187 H Alkaline Phosphatase 60 Total Protein 6.3 L Albumin 3.0 L Hepatitis A IgM Ab Negative Hep Bs Antigen Negative Hep B Core IgM Ab Negative Hepatitis C Antibody <0.1 ASSESSMENT AND PLAN: 32 yof with no significant PMHX here with Cholelithiasis and possible Acute cholecystitis +/- Choledochothiasis -Cholelithiasis with likely Acute cholecysttiis -Choledocholithiasis, r/o cholangitis Plan: LFts improved, pain with PO intake today, will change to NPO. MRCP noted. DIscussed with GI (Dr. Alvarez covering for Dr. Vivas). Anticipate ERCP on Wednesday unless clinical deterioration. Continue Zosyn day 4, monitor vitals and symptoms closely. Add morphine prn for pain control. Surgery input noted. Dispo pending ERCP and CCY based on clinical course. plan discussed with patient in detail, all questions answered.
--- NOTE | 2017-07-25 15:55 | PN ---
GI Progress Note Subjective: GI F/U FOR DR ALBA: PT JUST HAD SOME VOMITING AFTER EATING BROTH SOME NAUSEA AND VOMITING x 2 NO FEVERS, BUT SHE NOTES SOME CHILLS OF RECENT STILL WITH SAME RUQ PAIN TO BACK SAME YESTERDAY---NO CHANGE - Objective Vital Signs: Vital Signs Temperature 98.0 F 07/25/17 13:37 Pulse Rate 96 H 07/25/17 13:37 Respiratory Rate 18 07/25/17 13:37 Blood Pressure 112/47 07/25/17 13:37 O2 Sat by Pulse Oximetry (%) 100 07/25/17 05:00 Constitutional: Well Nourished, Calm (+BS/SOFT TENDER TO PALPATION IN THE RUQ AND EPIGASTRIC REGION) Labs: CBC, BMP 07/25/17 07:09 07/25/17 07:09 INR, PTT INR 1.10 (0.82-1.09) 07/24/17 06:00 Assessment/Plan 32F WITH CHOLEDOCHOLITHIASIS AND CHOLELITHIASIS NO EVIDENCE OF CHOLANGITIS ON IVF/IV ABX/PAIN MEDS HAD SOME ACUTE VOMITING AFTER EATING BROTH LABS TODAY IMPROVED WITH WBC <6 AND BILIRUBIN <1 DUE TO RECENT PAIN AND VOMITING, WILL RPEAT lft'S AND cbc WILL PLAN FOR ERCP WITH OUR BILIARY INTERVENTIONALIST IN THE AM, OR SOONER IF CLINICAL FINDINGS MERIT HAVE D/W PATIENT THE PROCEDURE ONCE AGAIN WILL MAKE HER NPO/ CONTINUE CURRENT RX MD MALLY
[2017-07-25 17:58] LABS: BASO % 0.4 % (0-2.0); EOS % 0.3 % (0-4.5); HEMATOCRIT 31.9 % (32.4-45.2); HEMOGLOBIN 10.8 GM/dL (10.7-15.3); LYMPH % 13.7 % (8-40); MCH 28.3 pg (25.7-33.7); MCHC 33.9 g/dl (32.0-36.0); MEAN CELL VOLUME 83.5 fl (80-96); MEAN PLT VOLUME 10.6 fl (7.5-11.1); NEUT % 78.6 % (42.8-82.8); PLATELET COUNT 164 K/MM3 (134-434); RBC 3.83 M/mm3 (3.60-5.2); RDW 14.8 % (11.6-15.6); WHITE BLOOD COUNT 7.8 K/mm3 (4.0-10.0)
[2017-07-25 18:25] LABS: ALBUMIN 3.4 g/dl (3.4-5.0); BILIRUBIN,DIRECT 0.4 mg/dL (0.0-0.2); BILIRUBIN,TOTAL 0.7 mg/dL (0.2-1.0); TOT PROT 6.8 g/dl (6.4-8.2)
[2017-07-26] MEDS ORDERED: PIPERACILLIN/TAZOBACTAM 3.375 GM VIAL IVPB ONE ×4 (01:15→20:59)
[2017-07-26] MEDS ORDERED: DEXTROSE 5%-WATER - 50 ML IVPB ONE ×4 (01:15→20:59)
[2017-07-26] MEDS: PIPERACILLIN/TAZOB 3.375 GM 3.375 GM in DEXTROSE 5%-WATER - 50 ML IVPB SCH ×4 (02:21→21:12)
[2017-07-26] MEDS: DEXTROSE 5%-NORMAL SALINE 1,000 ML IV SCH (02:33)
--- NOTE | 2017-07-26 07:25 | PN ---
Physical Exam: SUBJECTIVE: Patient seen and examined. Did not tolerated broth yesterday, had multiple episodes of N/v with elevated enzymes. Was put back on NPO. For ERCP today then lapchole after (likely wednesday) OBJECTIVE: Vital Signs Period Temp Pulse Resp BP Sys/Lopez Pulse Ox Last 24 Hr 97.9 F-98.3 F 40-96 17-20 102-114/47-62 96 Vital Signs Temp 97.9 F 07/26/17 18:14 Pulse 43 L 07/26/17 18:14 Resp 20 07/26/17 18:14 BP 104/64 07/26/17 18:14 Pulse Ox 99 07/26/17 13:02 Intake & Output 07/25/17 07/26/17 07/26/17 23:59 11:59 23:59 Intake Total 50 3275 Balance 50 3275 Intake: IV 2975 D5-Ns - 1,000 ml @ 125 1375 mls/hr IV ASDIR HEATHER Rx#: [id number] LACTATED RINGERS SOLUTION 1000 1,000 ml In 1,000 ml @ 150 mls/hr IV ASDIR HEATHER Rx#:[id number] IVPB 50 300 Other: Voiding Method Toilet Toilet Toilet # Unmeasured Voids Void 2 2 Bowel Movement Yes Yes GENERAL: The patient is awake, alert, and fully oriented, in no acute distress. ENT: moist mucous membranes. LUNGS: Breath sounds equal, clear to auscultation bilaterally, HEART: Regular rate and rhythm, S1, S2 ABDOMEN: Soft, tender RUQ, positive murphys, nondistended, normoactive bowel sounds EXTREMITIES: 2+ pulses, warm, well-perfused, no edema. NEUROLOGICAL: Cranial nerves II through XII grossly intact. Normal speech, gait not observed. Laboratory Results - last 24 hr 07/24/17 07/25/17 07/25/17 06:00 07:09 07:09 WBC 5.9 RBC 3.77 Hgb 10.6 L Hct 31.8 L MCV 84.4 MCH 28.1 MCHC 33.3 RDW 15.2 Plt Count 153 MPV 10.7 Neutrophils % 47.7 Lymphocytes % 36.7 Monocytes % 11.3 H Eosinophils % 3.6 Basophils % 0.7 Sodium 144 Potassium 3.7 Chloride 111 H Carbon Dioxide 27 Anion Gap 6 L BUN 5 L Creatinine 0.7 Random Glucose 93 Calcium 7.6 L Phosphorus 3.7 Magnesium 1.9 Total Bilirubin 0.7 D Direct Bilirubin < 0.2 AST 67 H ALT 187 H Alkaline Phosphatase 60 Total Protein 6.3 L Albumin 3.0 L Hep C Ab Diagnostic <0.1 Liver Fibrosis Interp 07/25/17 07/25/17 17:45 17:45 WBC 7.8 D RBC 3.83 Hgb 10.8 Hct 31.9 L MCV 83.5 MCH 28.3 MCHC 33.9 RDW 14.8 Plt Count 164 MPV 10.6 Neutrophils % 78.6 D Lymphocytes % 13.7 D Monocytes % 7.0 Eosinophils % 0.3 D Basophils % 0.4 Sodium Potassium Chloride Carbon Dioxide Anion Gap BUN Creatinine Random Glucose Calcium Phosphorus Magnesium Total Bilirubin 0.7 Direct Bilirubin 0.4 H AST 163 H ALT 258 H Alkaline Phosphatase 81 Total Protein 6.8 Albumin 3.4 Hep C Ab Diagnostic Liver Fibrosis Interp Active Medications Generic Name Dose Route Start Last Admin Trade Name Freq PRN Reason Stop Dose Admin Piperacillin Sod/Tazobactam 50 mls @ 100 mls/hr 07/23/17 09:00 07/26/17 02:21 Sod 3.375 gm/ Dextrose IVPB 100 mls/hr Q6H-IV HEATHER Administration Protocol Dextrose/Sodium Chloride 1,000 mls @ 125 mls/hr 07/23/17 08:30 07/26/17 02:33 D5-Ns - IV 125 mls/hr ASDIR HEATHER Administration Morphine Sulfate 0.5 mg 07/25/17 15:12 07/25/17 15:29 Morphine Sulfate IVPUSH 0.5 mg Q4H PRN Administration PAIN LEVEL 7 - 10 Ondansetron HCl 4 mg 07/22/17 19:00 Zofran Injection IVPUSH Q8H PRN NAUSEA ASSESSMENT/PLAN: 32 yo F with no past medical history presents with abdominal pain, n/v and gallstones + dilated extrahepatic bile ducts found on ultrasound and is admitted for evaluation of choledocholithiasis #Abdominal Pain: -likely 2/2 choledocholithiasis and Cholecystolithiasis -Positive [place] sign, worsening Liver enzymes over the weekend, now improved, presence of stones with dilation -NPO for for ERCP -IVF D5/NS @ 125cc/hr -cont zofran - per Dr Abdi -Surgery Dr. Billings consult appreciated -GI consult Dr. Mcfarland appreciated -MRCP- done -ERCP - done, 6 stones remove, stent not successful. For interval lap maybe wednesday #FEN -IVF NS @ 125cc/hr -replete lytes in AM -Pt now on clear fluid diet #Prophylaxis -early ambulation Visit type - Emergency Visit Emergency Visit: Yes ED Registration Date: 07/23/17 Care time: The patient presented to the Emergency Department on the above date and was hospitalized for further evaluation of their emergent condition. - New Patient This patient is new to me today: No - Critical Care Critical Care patient: No - Discharge Referral Referred to [facility] No
[2017-07-26 07:45] LABS: BASO % 0.6 % (0-2.0); EOS % 1.6 % (0-4.5); HEMATOCRIT 30.4 % (32.4-45.2); HEMOGLOBIN 10.3 GM/dL (10.7-15.3); LYMPH % 33.5 % (8-40); MCH 28.6 pg (25.7-33.7); MEAN CELL VOLUME 84.1 fl (80-96); MEAN PLT VOLUME 10.5 fl (7.5-11.1); MONO % 9.5 % (3.8-10.2); NEUT % 54.8 % (42.8-82.8); PLATELET COUNT 161 K/MM3 (134-434); RBC 3.61 M/mm3 (3.60-5.2); RDW 14.9 % (11.6-15.6); WHITE BLOOD COUNT 6.5 K/mm3 (4.0-10.0)
[2017-07-26 08:30] LABS: CHLORIDE 111 mmol/L (98-107); POTASSIUM 3.5 mmol/L (3.5-5.1); SODIUM 143 mmol/L (136-145)
[2017-07-26 09:01] LABS: ALBUMIN 3.1 g/dl (3.4-5.0); ALK PHOS 70 U/L (45-117); ANION GAP 7 (8-16); BILIRUBIN,DIRECT 0.2 mg/dL (0.0-0.2); BILIRUBIN,TOTAL 0.6 mg/dL (0.2-1.0); BLOOD UREA NITROGEN 7 mg/dL (7-18); CALCIUM 7.7 mg/dL (8.5-10.1); CO2 25 mmol/L (21-32); CREATININE 0.7 mg/dL (0.55-1.02); GLUCOSE,RANDOM 93 mg/dL (74-106); MAGNESIUM 1.8 mg/dL (1.8-2.4); PHOSPHOROUS 3.2 mg/dL (2.5-4.9); SGOT/AST 81 U/L (15-37); SGPT/ALT 198 U/L (12-78); TOT PROT 6.1 g/dl (6.4-8.2)
[2017-07-26] MEDS ORDERED: INDOMETHACIN 50 MG RECTAL SUPPOSITORY PR ONE ×3 (10:30→11:37)
[2017-07-26] MEDS ORDERED: PROPOFOL 20 ML ONE (11:16)
[2017-07-26] MEDS ORDERED: NEOSTIGMINE METHYLSULFATE 0.5 MG/ML - 10 ML MDV ONE (11:16)
[2017-07-26] MEDS ORDERED: MIDAZOLAM HCL 2 MG/2 ML SINGLE DOSE VIAL ONE (11:16)
[2017-07-26] MEDS ORDERED: GLYCOPYRROLATE 0.2 MG/1 ML VIAL ONE ×3 (11:16)
[2017-07-26] MEDS ORDERED: ROCURONIUM BROMIDE 50 MG/5 ML VIAL ONE (11:16)
--- NOTE | 2017-07-26 11:21 | PN ---
Progress Note (short form) - Note Progress Note: GI Pre-procedure Note: I explained the indications for her ERCP to Gwen and then the potential complications of ERCP that include perforation, hemorrhage and pancreatitis that can lead to pain, vomiting and multiorgan failure. After I answered her questions about the procedure she signed an informed consent. Will proceed with ERCP. An Indocin suppository will be given to minimize the pancreatitis risk.
[2017-07-26] MEDS ORDERED: IOHEXOL 300 MG/ML INFUS..BTL IV ONE (11:50)
--- NOTE | 2017-07-26 12:34 | PN ---
Progress Note (short form) - Note Progress Note: GI Procedure Note: Please see scanned ERCP note. 6 stones were removed from the common bile duct and left hepatic duct. Attempts to place a protective pancreatic stent were not successful. If LFTs normalize and no pancreatitis ensues then can proceed with cholecystectomy. Continue antibiotics and avoid anticoagulants.
[2017-07-26] MEDS ORDERED: LACTATED RINGERS SOLUTION 1,000 ML/1,000 ML INFUS.BAG IV SCH ×2 (12:45→18:00)
--- NOTE | 2017-07-26 15:15 | PN ---
Teaching Attending Note Name of Resident: Amina Osuna ATTENDING PHYSICIAN STATEMENT I saw and evaluated the patient. I reviewed the resident's note and discussed the case with the resident. I agree with the resident's findings and plan as documented with exceptions below. SUBJECTIVE: Patient seen and examined. some abdominal pain. reports some mouth pain after the procedure, no nasuea, vomiting. afraid to eat given concerns for pain. OBJECTIVE: Vital Signs Period Temp Pulse Resp BP Sys/Lopez Pulse Ox Last 24 Hr 98 F-98.3 F 40-67 14-20 102-116/51-72 96-100 Intake & Output 07/23/17 07/24/17 07/25/17 07/26/17 23:59 23:59 23:59 23:59 Intake Total 3325 1550 2075 Balance 3325 1550 2075 General: sitting in bed in no acute distress Abdomen: soft, epigstric and RUQ tenderness, overall unchanged, no voluntary or involuntary guarding or rigidity otherwise, positive bowel sounds Home Medication List Medication Instructions Recorded Confirmed Type NK [No Known Home Medication] 12/09/14 12/09/14 History Active Medications Generic Name Dose Route Start Last Admin Trade Name Freq PRN Reason Stop Dose Admin Piperacillin Sod/Tazobactam 50 mls @ 100 mls/hr 07/23/17 09:00 07/26/17 10:03 Sod 3.375 gm/ Dextrose IVPB 100 mls/hr Q6H-IV HEATHER Administration Protocol Lactated Ringer's 1,000 ml in 1,000 mls @ 250 mls/hr 07/26/17 12:45 07/26/17 14:29 Lactated Ringers Solution IV 07/26/17 18:00 250 mls/hr ASDIR HEATHER Administration Lactated Ringer's 1,000 ml in 1,000 mls @ 200 mls/hr 07/26/17 18:00 Lactated Ringers Solution IV 07/27/17 01:00 ASDIR HEATHER Lactated Ringer's 1,000 ml in 1,000 mls @ 175 mls/hr 07/27/17 01:00 Lactated Ringers Solution IV 07/27/17 07:00 ASDIR HEATHER Lactated Ringer's 1,000 ml in 1,000 mls @ 150 mls/hr 07/27/17 07:00 Lactated Ringers Solution IV ASDIR HEATHER Morphine Sulfate 0.5 mg 07/25/17 15:12 07/25/17 15:29 Morphine Sulfate IVPUSH 0.5 mg Q4H PRN Administration PAIN LEVEL 7 - 10 Ondansetron HCl 4 mg 07/22/17 19:00 Zofran Injection IVPUSH Q8H PRN NAUSEA Laboratory Results - last 24 hr 07/24/17 07/25/17 07/25/17 06:00 17:45 17:45 WBC 7.8 D RBC 3.83 Hgb 10.8 Hct 31.9 L MCV 83.5 MCH 28.3 MCHC 33.9 RDW 14.8 Plt Count 164 MPV 10.6 Neutrophils % 78.6 D Lymphocytes % 13.7 D Monocytes % 7.0 Eosinophils % 0.3 D Basophils % 0.4 Sodium Potassium Chloride Carbon Dioxide Anion Gap BUN Creatinine Random Glucose Calcium Phosphorus Magnesium Total Bilirubin 0.7 Direct Bilirubin 0.4 H AST 163 H ALT 258 H Alkaline Phosphatase 81 Total Protein 6.8 Albumin 3.4 Hep C Ab Diagnostic <0.1 Liver Fibrosis Interp 07/26/17 07/26/17 07:00 07:00 WBC 6.5 RBC 3.61 Hgb 10.3 L Hct 30.4 L MCV 84.1 MCH 28.6 MCHC 34.0 RDW 14.9 Plt Count 161 MPV 10.5 Neutrophils % 54.8 D Lymphocytes % 33.5 D Monocytes % 9.5 Eosinophils % 1.6 D Basophils % 0.6 Sodium 143 Potassium 3.5 Chloride 111 H Carbon Dioxide 25 Anion Gap 7 L BUN 7 Creatinine 0.7 Random Glucose 93 Calcium 7.7 L Phosphorus 3.2 Magnesium 1.8 Total Bilirubin 0.6 Direct Bilirubin 0.2 AST 81 H ALT 198 H Alkaline Phosphatase 70 Total Protein 6.1 L Albumin 3.1 L Hep C Ab Diagnostic Liver Fibrosis Interp ASSESSMENT AND PLAN: 32 yof with no significant PMHX here with Cholelithiasis and possible Acute cholecystitis +/- Choledochothiasis s/p ERCP with stones removal, unable to place pancreatic duct stent, for CCY on Wed if no concerns. -Cholelithiasis with likely Acute cholecysttiis -Choledocholithiasis, r/o cholangitis s/p ERCP with 6 stones removal 07/26 Plan: ERCP results noted, stones removed, unable to place pancreatic duct stent. Possible CCY on Wednesday if no concerns. Monitor LFTs lipase in AM. Mouth pain, likely from Endoscopy, cepacol lozenges prn. Continue Zosyn day 4, monitor vitals and symptoms closely. Surgery input noted. Dispo later this week pending CCY and clinical course. plan discussed with patient in detail, all questions answered.
[2017-07-26 17:03] LABS: ALBUMIN 3.2 g/dl (3.4-5.0); ANION GAP 8 (8-16); BLOOD UREA NITROGEN 8 mg/dL (7-18); CHLORIDE 109 mmol/L (98-107); CO2 26 mmol/L (21-32); GLUCOSE,RANDOM 119 mg/dL (74-106); POTASSIUM 3.2 mmol/L (3.5-5.1); SODIUM 143 mmol/L (136-145)
[2017-07-26 17:07] LABS: ALK PHOS 72 U/L (45-117); BILIRUBIN,DIRECT 0.2 mg/dL (0.0-0.2); BILIRUBIN,TOTAL 0.6 mg/dL (0.2-1.0); CREATININE 0.7 mg/dL (0.55-1.02); SGOT/AST 74 U/L (15-37); SGPT/ALT 189 U/L (12-78); TOT PROT 6.3 g/dl (6.4-8.2)
[2017-07-26] MEDS ORDERED: POTASSIUM CHLORIDE 10 MEQ in SODIUM CHLORIDE 100 ML IVPB SCH (18:30)
[2017-07-26] MEDS: KCL 10 MEQ IVPB 10 MEQ/100 ML INFUS.BAG IVPB SCH ×2 (21:11→23:36)
[2017-07-26] MEDS: morphine SULFATE 4 MG/ML VIAL IVPUSH PRN (22:21)
[2017-07-27 00:07] LABS: HBSAG SCREEN Negative (Negative); HEP A AB, IGM Negative (Negative); HEP B CORE AB, TOT Negative (Negative)
[2017-07-27] MEDS: KCL 10 MEQ IVPB 10 MEQ/100 ML INFUS.BAG IVPB SCH (00:44)
[2017-07-27] MEDS: PIPERACILLIN/TAZOB 3.375 GM 3.375 GM in DEXTROSE 5%-WATER - 50 ML IVPB SCH ×3 (02:02→17:16)
[2017-07-27] MEDS: LACTATED RINGERS SOLUTION 1,000 ML/1,000 ML INFUS.BAG IV SCH ×2 (03:38→06:13)
[2017-07-27] MEDS ORDERED: PIPERACILLIN/TAZOBACTAM 3.375 GM VIAL IVPB ONE ×2 (05:48→08:38)
[2017-07-27] MEDS ORDERED: DEXTROSE 5%-WATER - 50 ML IVPB ONE ×2 (05:48→08:38)
[2017-07-27] MEDS ORDERED: LACTATED RINGERS SOLUTION 1,000 ML/1,000 ML INFUS.BAG IV SCH (07:00)
[2017-07-27 07:26] LABS: BASO % 0.7 % (0-2.0); EOS % 1.3 % (0-4.5); HEMATOCRIT 31.3 % (32.4-45.2); HEMOGLOBIN 10.4 GM/dL (10.7-15.3); LYMPH % 33.2 % (8-40); MCHC 33.4 g/dl (32.0-36.0); MEAN CELL VOLUME 83.7 fl (80-96); MEAN PLT VOLUME 10.4 fl (7.5-11.1); MONO % 8.4 % (3.8-10.2); NEUT % 56.4 % (42.8-82.8); PLATELET COUNT 162 K/MM3 (134-434); RBC 3.74 M/mm3 (3.60-5.2); RDW 14.9 % (11.6-15.6); WHITE BLOOD COUNT 8.2 K/mm3 (4.0-10.0)
[2017-07-27 07:52] LABS: CHLORIDE 112 mmol/L (98-107); CREATININE 0.7 mg/dL (0.55-1.02); MAGNESIUM 1.7 mg/dL (1.8-2.4); POTASSIUM 3.6 mmol/L (3.5-5.1); SGOT/AST 43 U/L (15-37); SGPT/ALT 144 U/L (12-78); SODIUM 144 mmol/L (136-145)
[2017-07-27 08:01] LABS: ALK PHOS 68 U/L (45-117); AMYLASE 67 U/L (25-115); ANION GAP 8 (8-16); BILIRUBIN,DIRECT 0.2 mg/dL (0.0-0.2); BILIRUBIN,TOTAL 0.6 mg/dL (0.2-1.0); BLOOD UREA NITROGEN 8 mg/dL (7-18); CALCIUM 8.2 mg/dL (8.5-10.1); CO2 24 mmol/L (21-32); GLUCOSE,RANDOM 77 mg/dL (74-106); LIPASE 200 U/L (73-393); PHOSPHOROUS 3.6 mg/dL (2.5-4.9); TOT PROT 5.9 g/dl (6.4-8.2)
--- NOTE | 2017-07-27 08:08 | PN ---
Physical Exam: SUBJECTIVE: Patient seen and examined. Had ERCP with removal of 6 stones. No stent in place. Had some abdominal pain relieved with morphine. No fevers. Was on clears but anxious so did not take much. C/O sore throat. NPO today for lap rizwana. OBJECTIVE: Vital Signs Period Temp Pulse Resp BP Sys/Lopez Pulse Ox Last 24 Hr 97.5 F-98.4 F 40-67 14-20 103-125/58-72 97-100 GENERAL: The patient is awake, alert, and fully oriented, in no acute distress. ENT: moist mucous membranes. LUNGS: Breath sounds equal, clear to auscultation bilaterally, HEART: Regular rate and rhythm, S1, S2 ABDOMEN: Soft, tender RUQ, positive murphys sign, nondistended, normoactive bowel sounds EXTREMITIES: 2+ pulses, warm, well-perfused, no edema. NEUROLOGICAL: Cranial nerves II through XII grossly intact. Normal speech, normal gait Laboratory Results - last 24 hr 07/24/17 07/26/17 07/26/17 06:00 07:00 15:00 Sodium 143 143 Potassium 3.5 3.2 L Chloride 111 H 109 H Carbon Dioxide 25 26 Anion Gap 7 L 8 BUN 7 8 Creatinine 0.7 0.7 Creat Clearance w eGFR > 60 Random Glucose 93 119 H Calcium 7.7 L 8.0 L Phosphorus 3.2 Magnesium 1.8 Total Bilirubin 0.6 0.6 Direct Bilirubin 0.2 0.2 AST 81 H 74 H ALT 198 H 189 H Alkaline Phosphatase 70 72 Total Protein 6.1 L 6.3 L Albumin 3.1 L 3.2 L Hep A IgM Ab Confirm Negative Hepatitis A Ab Total Positive H Hep Bs Antigen Negative Hep Bs Antibody Reactive Hep B Core Total Ab Negative Active Medications Generic Name Dose Route Start Last Admin Trade Name Freq PRN Reason Stop Dose Admin Piperacillin Sod/Tazobactam 50 mls @ 100 mls/hr 07/23/17 09:00 07/27/17 02:02 Sod 3.375 gm/ Dextrose IVPB 100 mls/hr Q6H-IV HEATHER Administration Protocol Lactated Ringer's 1,000 ml in 1,000 mls @ 150 mls/hr 07/27/17 07:00 Lactated Ringers Solution IV ASDIR HEATHER Morphine Sulfate 0.5 mg 07/25/17 15:12 07/26/17 22:21 Morphine Sulfate IVPUSH 0.5 mg Q4H PRN Administration PAIN LEVEL 7 - 10 Ondansetron HCl 4 mg 07/22/17 19:00 Zofran Injection IVPUSH Q8H PRN NAUSEA ASSESSMENT/PLAN: 32 yo F with no past medical history presents with abdominal pain, n/v and gallstones + dilated extrahepatic bile ducts found on ultrasound and is admitted for evaluation of choledocholithiasis #Choledocholithiasis and Cholecystolithiasis s/p ERCP with removal of 6 stones (07/26/17) -LFTS returned to normal prior to lap rizwana -NPO for Lap rizwana -IVF D5/NS @ 125cc/hr -On zofran 07/23/17 -Surgery Dr. Billings consult appreciated -GI consult Dr. Mcfarland appreciate -D/W Dr Abdi no need for pancreatic stents -Pain mx #FEN -IVF NS @ 125cc/hr -replete lytes as needed -Pt NPO for lapchole #Prophylaxis -early ambulation -SCDs #Dispo: For discharge tomorrow Visit type - Emergency Visit Emergency Visit: Yes ED Registration Date: 07/23/17 Care time: The patient presented to the Emergency Department on the above date and was hospitalized for further evaluation of their emergent condition. - New Patient This patient is new to me today: No - Critical Care Critical Care patient: No - Discharge Referral Referred to [facility] No
--- NOTE | 2017-07-27 08:26 | PN ---
Progress Note (short form) - Note Progress Note: Pt wihout any increase in pain today. S/p ERCP Vital Signs Period Temp Pulse Resp BP Sys/Lopez Pulse Ox Last 24 Hr 97.5 F-98.4 F 40-67 14-20 103-125/58-72 97-100 GEN: appears comfortable ABD: soft, non-distended, mild epigastric/RUQ tenderness Hepatic Panel Total Bilirubin 0.6 mg/dL (0.2-1.0) 07/27/17 06:00 Direct Bilirubin 0.2 mg/dL (0.0-0.2) 07/27/17 06:00 AST 43 U/L (15-37) H 07/27/17 06:00 ALT 144 U/L (12-78) H 07/27/17 06:00 Alkaline Phosphatase 68 U/L (45-117) 07/27/17 06:00 Albumin 3.0 g/dl (3.4-5.0) L 07/27/17 06:00 CBC, BMP 07/27/17 06:00 Laboratory Tests 07/27/17 06:00 Total Amylase 67 Lipase 200 A/P: 32 yo female s/p ERCP with CBD stones and left hepatic stone removed LFTS WNL and amylase/lipase ok Continue npo for possible surgery today D/w Dr. Billings
[2017-07-27] MEDS ORDERED: MAGNESIUM 2GM/50ML STERILE WATER IVPB IVPB ONE (08:53)
[2017-07-27] MEDS ORDERED: BUPIVACAINE HCL/PF 0.5% (5MG/ML) 10 ML VIAL ONE (11:41)
--- NOTE | 2017-07-27 11:50 | EKG ---
Test Reason : Blood Pressure : / mmHG Vent. Rate : 041 BPM Atrial Rate : 041 BPM P-R Int : 174 ms QRS Dur : 086 ms QT Int : 484 ms P-R-T Axes : 043 074 050 degrees QTc Int : 399 ms MARKED SINUS BRADYCARDIA ABNORMAL ECG Confirmed by MD LONI, ALLYSON ([id number]) on 07/27/2017 11:50:38 AM Referred By: RAHEL DICKERSON DR Confirmed By:ALLYSON IVEY MD
[2017-07-27] MEDS ORDERED: ceFAZolin SODIUM 1 GM VIAL IVPB ONE (11:54)
[2017-07-27] MEDS ORDERED: MIDAZOLAM HCL 2 MG/2 ML SINGLE DOSE VIAL ONE (12:26)
[2017-07-27] MEDS ORDERED: PROPOFOL 20 ML ONE ×2 (12:31→14:01)
[2017-07-27] MEDS ORDERED: ROCURONIUM BROMIDE 50 MG/5 ML VIAL ONE (12:32)
[2017-07-27] MEDS ORDERED: BUPIVACAINE HCL/PF 0.5% (5MG/ML) 10 ML VIAL IJ ONE ×2 (13:53→14:30)
[2017-07-27] MEDS ORDERED: BENZOIN/ALOE VERA/STORAX/TOLU 58 ML BOTTLE ONE (13:59)
[2017-07-27] MEDS ORDERED: BENZOCAINE/MENTH/CETYLPYRD CL 1 EACH LOZENGE MM PRN ×2 (14:34→15:06)
--- NOTE | 2017-07-27 15:00 | OP ---
Operative Note - Note: Operative Date: 07/27/17 Pre-Operative Diagnosis: Cholecystitis Operation: Lap cholecystectomy Surgeon: Raji Billings Plane Tender: Bin Santiago Anesthesia: General Estimated Blood Loss (mls): 10 Drains & Tubes with Location: LETICIA Drain, RLQ Operative Report Dictated: Yes
--- NOTE | 2017-07-27 15:01 | SURG ---
Surgery Customer Service Coordinator Note Customer Service Coordinator: Bin Santiago PA-C Date of Service: 07/27/17 Diagnosis: Cholecystitis Procedure: Lap cholecystectomy I was present for the entirety of the operative procedure. For further detail, please refer to operative report.
[2017-07-27] MEDS ORDERED: ONDANSETRON 4 MG/2 ML VIAL IVPUSH PRN (15:03)
[2017-07-27] MEDS: LACTATED RINGERS SOLUTION 1,000 ML IV SCH (15:53)
--- NOTE | 2017-07-27 16:04 | PN ---
Teaching Attending Note Name of Resident: Amina Osuna ATTENDING PHYSICIAN STATEMENT I saw and evaluated the patient. I reviewed the resident's note and discussed the case with the resident. I agree with the resident's findings and plan as documented. patient was evaluated at 10AM SUBJECTIVE:intermittent sharp RUQ pain. denies Cp, SOB, fever, chills, N/V/C/D was never told her HR was slow, never have any symptoms OBJECTIVE: Last Vital Signs Temp Pulse Resp BP Pulse Ox 98.1 F 51 L 18 96/50 95 07/27/17 14:53 07/27/17 15:35 07/27/17 15:35 07/27/17 15:35 07/27/17 15:35 General NAD CV S1 S2 + Lungs CTA B/l no wheezing/rales/rhonchi Abdomen soft +RUQ tenderness no rebound or guarding ASSESSMENT AND PLAN: 32 yo F with no significant PMHX here with Cholelithiasis and possible Acute cholecystitis +/- Choledochothiasis s/p ERCP with stones removal, unable to place pancreatic duct stent, for CCY on Wed if no concerns. 1. Cholelithiasis with likely Acute cholecysttiis- NPO for laprascopic cholecystectomy today. on empiric zosyn can d/c after surgery 2. Choledocholithiasis, r/o cholangitis s/p ERCP with 6 stones removal 07/26. unable to place pancreatic stent. LFT trednding down. will continue to monitor while hospitalized to continue to trend down 3. Asymptomatic bradycardia- sinus john on EKG. with minimal activity of marching in place HR increases from 41 to 73. no further workup at this time. can f/u with PMD as outpatient 4. plan for D/c tomorrow pending results of surgery today
[2017-07-27] MEDS: ACETAMINOPHEN 325 MG TABLET (FP) PO PRN (19:54)
[2017-07-27] MEDS: oxyCODONE HCL 5 MG TABLET PO PRN (19:54)
[2017-07-28] MEDS: oxyCODONE HCL 5 MG TABLET PO PRN ×4 (01:28→17:13)
[2017-07-28] MEDS: ACETAMINOPHEN 325 MG TABLET (FP) PO PRN ×4 (01:29→17:13)
[2017-07-28 07:29] LABS: BASO % 0.6 % (0-2.0); HEMATOCRIT 30.8 % (32.4-45.2); HEMOGLOBIN 10.2 GM/dL (10.7-15.3); LYMPH % 30.9 % (8-40); MCH 27.7 pg (25.7-33.7); MCHC 33.1 g/dl (32.0-36.0); MEAN CELL VOLUME 83.8 fl (80-96); MEAN PLT VOLUME 10.6 fl (7.5-11.1); NEUT % 57.5 % (42.8-82.8); PLATELET COUNT 148 K/MM3 (134-434); RBC 3.68 M/mm3 (3.60-5.2); RDW 14.9 % (11.6-15.6); WHITE BLOOD COUNT 8.4 K/mm3 (4.0-10.0)
[2017-07-28 07:43] LABS: INR 1.19 (0.82-1.09); PROTHROMBIN TIME (PATIENT) 13.5 SEC (9.7-13.0)
[2017-07-28 07:46] LABS: ACTIVATED PTT 28.8 SECONDS (26.9-34.4)
[2017-07-28 07:48] LABS: CHLORIDE 107 mmol/L (98-107); POTASSIUM 3.4 mmol/L (3.5-5.1); SODIUM 140 mmol/L (136-145)
[2017-07-28 07:54] LABS: ALBUMIN 2.7 g/dl (3.4-5.0); ALK PHOS 57 U/L (45-117); ANION GAP 8 (8-16); BILIRUBIN,TOTAL 0.7 mg/dL (0.2-1.0); BLOOD UREA NITROGEN 6 mg/dL (7-18); CALCIUM 7.5 mg/dL (8.5-10.1); CO2 25 mmol/L (21-32); CREATININE 0.6 mg/dL (0.55-1.02); GLUCOSE,RANDOM 67 mg/dL (74-106); MAGNESIUM 1.8 mg/dL (1.8-2.4); PHOSPHOROUS 3.4 mg/dL (2.5-4.9); SGOT/AST 35 U/L (15-37); SGPT/ALT 108 U/L (12-78); TOT PROT 5.8 g/dl (6.4-8.2)
[2017-07-28] MEDS ORDERED: POTASSIUM CHLORIDE TABS 20 MEQ TABLET.ER (FP) PO ONE (08:02)
[2017-07-28] MEDS ORDERED: POTASSIUM CHLORIDE ORAL LIQUID 20 MEQ/15 ML PO ONE ×2 (08:03→12:30)
--- NOTE | 2017-07-28 08:27 | PN ---
Progress Note (short form) - Note Progress Note: POD #1 - s/p laparoscopic cholecystectomy under general anesthesia. VSS. Pt. doing well, sitting up at side of bed comfortably. No complaints. No apparent anesthetic complications noted. Continue current care.
--- NOTE | 2017-07-28 09:12 | PN ---
Progress Note, Physician History of Present Illness: Leakage of serosanguineous fluid and pain at surgical site on ambulation. Tolerating current diet - Current Medication List Current Medications: Active Medications Acetaminophen (Tylenol -) 325 mg PO Q4H PRN PRN Reason: PAIN LEVEL 6-10 Stop: 07/30/17 15:07 Last Admin: 07/28/17 05:47 Dose: 325 mg Benzocaine/Menthol (Cepacol Lozenge -) 1 each MM DAILY PRN PRN Reason: SORE THROAT Fentanyl (Sublimaze Injection -) 50 mcg IVPUSH [id number] PRN PRN Reason: PAIN-PACU ORDER X 4 DOSES ONLY Last Admin: 07/27/17 15:55 Dose: 50 mcg Lactated Ringer's (Lactated Ringers Solution) 1,000 mls @ 125 mls/hr IV ASDIR HEATHER Last Admin: 07/27/17 15:53 Dose: 125 mls/hr Ondansetron HCl (Zofran Injection) 4 mg IVPUSH Q6H PRN PRN Reason: NAUSEA AND/OR VOMITING Oxycodone HCl (Roxicodone -) 5 mg PO Q4H PRN PRN Reason: PAIN LEVEL 6-10 Last Admin: 07/28/17 05:47 Dose: 5 mg - Objective Vital Signs: Vital Signs Temperature 98.3 F 07/28/17 06:00 Pulse Rate 58 L 07/28/17 06:00 Respiratory Rate 18 07/28/17 06:00 Blood Pressure 104/60 07/28/17 06:00 O2 Sat by Pulse Oximetry (%) 96 07/27/17 21:00 Constitutional: Yes: Anxious, Mild Distress Eyes: Yes: Conjunctiva Clear HENT: Yes: Atraumatic Neck: Yes: Supple Cardiovascular: Yes: Regular Rate and Rhythm Respiratory: Yes: Regular Gastrointestinal: Yes: Normal Bowel Sounds, Soft, Tenderness. No: Melena, Rectal Bleeding, Tenderness, Epigastrium, Vomiting Neurological: Yes: Alert, Oriented Labs: CBC, BMP 07/28/17 06:00 07/28/17 06:00 INR, PTT INR 1.19 (0.82-1.09) H 07/28/17 06:00 Laboratory Last Values WBC 8.4 K/mm3 (4.0-10.0) 07/28/17 06:00 RBC 3.68 M/mm3 (3.60-5.2) 07/28/17 06:00 Hgb 10.2 GM/dL (10.7-15.3) L 07/28/17 06:00 Hct 30.8 % (32.4-45.2) L 07/28/17 06:00 MCV 83.8 fl (80-96) 07/28/17 06:00 MCH 27.7 pg (25.7-33.7) 07/28/17 06:00 MCHC 33.1 g/dl (32.0-36.0) 07/28/17 06:00 RDW 14.9 % (11.6-15.6) 07/28/17 06:00 Plt Count 148 K/MM3 (134-434) 07/28/17 06:00 MPV 10.6 fl (7.5-11.1) 07/28/17 06:00 Neutrophils % 57.5 % (42.8-82.8) 07/28/17 06:00 Lymphocytes % 30.9 % (8-40) 07/28/17 06:00 Monocytes % 10.0 % (3.8-10.2) 07/28/17 06:00 Eosinophils % 1.0 % (0-4.5) 07/28/17 06:00 Basophils % 0.6 % (0-2.0) 07/28/17 06:00 PT with INR 13.50 SEC (9.7-13.0) H 07/28/17 06:00 INR 1.19 (0.82-1.09) H 07/28/17 06:00 PTT (Actin FS) 28.8 SECONDS (26.9-34.4) 07/28/17 06:00 Sodium 140 mmol/L (136-145) 07/28/17 06:00 Potassium 3.4 mmol/L (3.5-5.1) L 07/28/17 06:00 Chloride 107 mmol/L (98-107) 07/28/17 06:00 Carbon Dioxide 25 mmol/L (21-32) 07/28/17 06:00 Anion Gap 8 (8-16) 07/28/17 06:00 BUN 6 mg/dL (7-18) L 07/28/17 06:00 Creatinine 0.6 mg/dL (0.55-1.02) 07/28/17 06:00 Creat Clearance w eGFR > 60 (>60) 07/28/17 06:00 Random Glucose 67 mg/dL (74-106) L 07/28/17 06:00 Calcium 7.5 mg/dL (8.5-10.1) L 07/28/17 06:00 Phosphorus 3.4 mg/dL (2.5-4.9) 07/28/17 06:00 Magnesium 1.8 mg/dL (1.8-2.4) 07/28/17 06:00 Total Bilirubin 0.7 mg/dL (0.2-1.0) 07/28/17 06:00 Direct Bilirubin 0.2 mg/dL (0.0-0.2) 07/27/17 06:00 AST 35 U/L (15-37) 07/28/17 06:00 ALT 108 U/L (12-78) H 07/28/17 06:00 Alkaline Phosphatase 57 U/L (45-117) 07/28/17 06:00 C-Reactive Protein < 0.3 MG/DL (0.00-0.3) 07/27/17 06:00 Total Protein 5.8 g/dl (6.4-8.2) L 07/28/17 06:00 Albumin 2.7 g/dl (3.4-5.0) L 07/28/17 06:00 Total Amylase 67 U/L (25-115) 07/27/17 06:00 Lipase 200 U/L (73-393) 07/27/17 06:00 Urine Color Jossy 07/22/17 17:15 Urine Appearance Cloudy 07/22/17 17:15 Urine pH 5.0 (5.0-8.0) 07/22/17 17:15 Ur Specific [place] 1.032 (1.001-1.035) 07/22/17 17:15 Urine Protein 1+ (NEGATIVE) H 07/22/17 17:15 Urine Glucose (UA) Negative (NEGATIVE) 07/22/17 17:15 Urine Ketones Negative (NEGATIVE) 07/22/17 17:15 Urine Blood 2+ (NEGATIVE) H 07/22/17 17:15 Urine Nitrite Negative (NEGATIVE) 07/22/17 17:15 Urine Bilirubin 2.0 (<2.0 mg/dL) 07/22/17 17:15 Urine Urobilinogen 4.0 e.u/dl mg/dL (0.2-1.0) H 07/22/17 17:15 Ur Leukocyte Esterase Trace (NEGATIVE) 07/22/17 17:15 Urine WBC (Auto) 17 /hpf (3-5) 07/22/17 17:15 Urine RBC (Auto) 25 /hpf (0-3) 07/22/17 17:15 Ur Epithelial Cells Many /HPF (FEW) 07/22/17 17:15 Urine Mucus Many 07/22/17 17:15 Urine HCG, Qual Negative 07/22/17 17:15 Hepatitis A IgM Ab Negative (Negative) 07/23/17 09:10 Hep A IgM Ab Confirm Negative (Negative) 07/24/17 06:00 Hepatitis A Ab Total Positive (Negative) H 07/24/17 06:00 Hep Bs Antigen Negative (Negative) 07/24/17 06:00 Hep Bs Antibody Reactive (.) 07/24/17 06:00 Hep B Core Total Ab Negative (Negative) 07/24/17 06:00 Hep B Core IgM Ab Negative (Negative) 07/23/17 09:10 Hep C Ab Diagnostic <0.1 s/co ratio (0.0-0.9) 07/24/17 06:00 Hepatitis C Antibody <0.1 s/co ratio (0.0-0.9) 07/23/17 09:10 Liver Fibrosis Interp (.) 07/24/17 06:00 Blood Type O POSITIVE 07/23/17 06:00 Antibody Screen Negative 07/23/17 06:00 Problem List - Problems (1) Transaminitis Code(s): R74.0 - NONSPEC ELEV OF LEVELS OF TRANSAMNS & LACTIC ACID DEHYDRGNSE (2) Cholelithiasis Code(s): K80.20 - CALCULUS OF GALLBLADDER W/O CHOLECYSTITIS W/O OBSTRUCTION (3) Epigastric abdominal pain Code(s): R10.13 - EPIGASTRIC PAIN (4) Positive Moore's Sign Code(s): R19.8 - OTH SYMPTOMS AND SIGNS INVOLVING THE DGSTV SYS AND ABDOMEN (5) Cholelithiasis Code(s): K80.20 - CALCULUS OF GALLBLADDER W/O CHOLECYSTITIS W/O OBSTRUCTION Qualifiers: Cholelithiasis location: gallbladder Assessment/Plan surgical follow-up to assess leakage surgical site. CMP, direct bili in a.m. tomorrow
--- NOTE | 2017-07-28 09:17 | OP ---
DATE OF OPERATION: 07/27/2017 PREOPERATIVE DIAGNOSES: Cholelithiasis and choledocholithiasis. PROCEDURE: Laparoscopic cholecystectomy. SURGEON: Raji Billings MD ELECTRICAL PROSPECTING OPERATOR: Bin Barrera PA-C ANESTHESIA: General. ANESTHESIOLOGIST: Chayito Zelaya MD OPERATIVE FINDINGS: There was some free peritoneal fluid noted on laparoscopy over the liver and in the pelvis. There was edema in the triangle of Calot. The rest of the findings were unremarkable. PROCEDURE: The patient was placed on the operating table in the supine position and after the induction of general anesthesia the patient's abdomen was prepped with ChloraPrep and draped in sterile fashion. A timeout was taken and pneumoperitoneum established above the umbilicus using a Veress needle. Once 15 mmHg of pressure were obtained, a 5-mm port was placed at the umbilicus and additional lateral 5-mm ports and a subxiphoid 12-mm port. Laparoscopy was carried out and the previously noted findings were observed. Dissection was begun at the neck of the gallbladder where the peritoneum was opened medially and laterally using blunt dissection and electrocautery. The cystic duct was identified coursing from the neck of the gallbladder towards the common bile duct and it was dissected using blunt dissection proximally and distally for length. Similarly, the artery was identified and dissected proximally and distally for length. A critical view of safety was taken and then the duct and the artery were clipped twice proximally and twice distally with large hemoclips. The duct and artery were then serially divided using Endoshears. Hemostasis was checked for and noted to be good and then the gallbladder was removed from the liver bed in a retrograde fashion using electrocautery. Prior to removal from the edge of the liver, hemostasis in the liver bed was again checked for and noted to be good and then the gallbladder removed from the edge of the liver, placed in an EndoCatch , and brought out through the subxiphoid port. Pneumoperitoneum was reestablished. Copious irrigation was carried out with saline. Hemostasis was verified again. A 10-mm Jay-Boyer drain was placed in the right hepatorenal fossa and brought out through 1 of the 5-mm ports and secured to the skin with 2-0 silk suture. All port sites were removed under laparoscopic vision without evidence of bleeding from the port sites. The port sites were infiltrated with 0.5% Marcaine and the skin edges reapproximated with 4-0 Biosyn in a subcuticular continuous fashion. Steri-Strips and Band-Aid dressings were placed. The drain was connected to bulb suction and then the patient aroused from general anesthesia and transferred to the postanesthesia care unit in stable condition, awake and alert. ESTIMATED BLOOD LOSS: 10 mL. REPLACEMENT: Crystalloid. DRAINS: One 10-mm Jay-Boyer. SPECIMEN: Gallbladder and contents to Pathology. I, Raji Billings, was physically present in the operating room from the time the patient was placed on the operating table until she was transferred to the postanesthesia care unit in [employer]. MD ZINA Carreor/[id number] MTDD
--- NOTE | 2017-07-28 09:44 | PN ---
Progress Note (short form) - Note Progress Note: POD #1 Alert. Sitting on edge of bed. C/o mild incisional tenderness. Adequate pain control via prn meds. Voiding spontaneously. Tolerating PO diet. Hasn't been OOB to ambulate yet. Using incentive spirometer as directed. Denies n/v/f/c Last Vital Signs Temp Pulse Resp BP Pulse Ox 98.3 F 58 L 18 104/60 96 07/28/17 06:00 07/28/17 06:00 07/28/17 06:00 07/28/17 06:00 07/27/17 21:00 CBC, BMP 07/28/17 06:00 07/28/17 06:00 Hepatic Panel Total Bilirubin 0.7 mg/dL (0.2-1.0) 07/28/17 06:00 Direct Bilirubin 0.2 mg/dL (0.0-0.2) 07/27/17 06:00 AST 35 U/L (15-37) 07/28/17 06:00 ALT 108 U/L (12-78) H 07/28/17 06:00 Alkaline Phosphatase 57 U/L (45-117) 07/28/17 06:00 Albumin 2.7 g/dl (3.4-5.0) L 07/28/17 06:00 PE Gen: nad Abd: all surgical ports c/d/i. LETICIA 120 serosang LE: SCDs bilat. Soft. NT Problem List - Problems (1) S/P laparoscopic cholecystectomy Assessment/Plan: Doing well. LFTs normalized Cont OOB and ambulate Diet as tolerated LETICIA dc'd on rounds Can be discharged from a surgical standpoint. Patient to f/u with Dr. Billings in 1 week at his office. On behalf of Dr. Billings, thank you for the opportunity to participate in your patient's care Code(s): Z90.49 - ACQUIRED ABSENCE OF OTHER SPECIFIED PARTS OF DIGESTIVE TRACT (2) Status post endoscopic retrograde cholangiopancreatography Code(s): Z98.890 - OTHER SPECIFIED POSTPROCEDURAL STATES
--- NOTE | 2017-07-28 11:47 | DS ---
Physical Exam: SUBJECTIVE: Patient seen and examined. Had lap rizwana yesterday. Started and tolerated PO. No nausea, no vomiting, no fever. OBJECTIVE: Vital Signs Period Temp Pulse Resp BP Sys/Lopez Pulse Ox Last 24 Hr 98.1 F-99.5 F 50-85 15-20 96-115/47-62 94-99 Vital Signs Temp 98.3 F 07/28/17 06:00 Pulse 58 L 07/28/17 06:00 Resp 18 07/28/17 06:00 BP 104/60 07/28/17 06:00 Pulse Ox 96 07/27/17 21:00 Intake & Output 07/27/17 07/28/17 07/28/17 23:59 11:59 23:59 Intake Total 900 1000 Output Total 1000 120 Balance -100 880 Intake: IV 750 1000 Lactated Ringers Solution 500 1000 1,000 ml @ 125 mls/hr IV ASDIR HEATHER Rx#: [id number] IVPB 150 Output: Drainage 120 LETICIA DRAIN 120 Urine 1000 Void 700 Other: Voiding Method Toilet Toilet # Unmeasured Voids Void 2 2 PHYSICAL EXAM GENERAL: The patient is awake, alert, and fully oriented, in no acute distress. ENT: moist mucous membranes. NECK: supple. LUNGS: Breath sounds equal, clear to auscultation bilaterally HEART: Regular rate and rhythm, S1, S2. ABDOMEN: Soft, Larger RLQ dressing with LETICIA drain, draining serosanguinous fluids , scope puncture wounds dressed supra and infra umbilical, appropriately tender , nondistended, bowel sounds present, EXTREMITIES: 2+ pulses, warm, well-perfused, no edema. NEUROLOGICAL: Cranial nerves II through XII grossly intact. Normal speech, muscle strength 5/5 globally. LABS CBC, BMP 07/28/17 06:00 07/28/17 06:00 Laboratory Results - last 24 hr 07/28/17 07/28/17 07/28/17 06:00 06:00 06:00 WBC 8.4 RBC 3.68 Hgb 10.2 L Hct 30.8 L MCV 83.8 MCH 27.7 MCHC 33.1 RDW 14.9 Plt Count 148 MPV 10.6 Neutrophils % 57.5 Lymphocytes % 30.9 Monocytes % 10.0 Eosinophils % 1.0 Basophils % 0.6 PT with INR 13.50 H INR 1.19 H PTT (Actin FS) 28.8 Sodium 140 Potassium 3.4 L Chloride 107 Carbon Dioxide 25 Anion Gap 8 BUN 6 L Creatinine 0.6 Creat Clearance w eGFR > 60 Random Glucose 67 L Calcium 7.5 L Phosphorus 3.4 Magnesium 1.8 Total Bilirubin 0.7 AST 35 ALT 108 H Alkaline Phosphatase 57 Total Protein 5.8 L Albumin 2.7 L US - cholelithiasis and dilated extrahepatic bile duct 7mm MRCP- 07/22/17: Mild dilation of CBD and CHD. Choledocholithiasis with numerous stones in CBD, CHD,and R hepatic duct Cholecystolithiasis with no definite stones identified in the cystic duct. There is no evidence of acute cholecystitis or pancreatitis HOSPITAL COURSE: Date of Admission:07/23/17 Date of Discharge: 07/28/17 Prehospital Course: 32 yo F with no past medical history presented with abdominal pain, n/v and gallstones + dilated extrahepatic bile ducts found on ultrasound and was admitted for choledocholithiasis Hospital Course: Patient was diaagnosed with Choledocholithiasis and Cholecystolithiasis via US and MRCP see above. She had ERCP with removal of 6 stones (07/26/17) and lap cholecystectomy on 07/27/17. Liver enzymes sadie initially prior to surgery, but trended down. She received iv zosyn from 07/23/2017 until 07/26. She received intraoperative ancef and is being discharged without antibiotic. Post-op, she tolerated orally and had her pain controlled on percocet. She is being discharged home on percocet to take as needed. She is to follow up with her PCP , surgery and GI within a week. While in hospital, she was noted to have a bradycardia that sadie appropriately with minimal bedside exercise. EKG showed sinus bradycardia. Her potassium was repleted at intervals as needed. Minutes to complete discharge: 40 Discharge Summary Reason For Visit: COMMON BILE DUCT CALCULUS Current Active Problems Abdominal pain (Acute) Choledocholithiasis (Acute) Cholelithiasis (Acute) Cholelithiasis (Acute) Epigastric abdominal pain (Acute) Positive Moore's Sign (Acute) S/P ERCP (Acute) S/P laparoscopic cholecystectomy (Acute) Status post endoscopic retrograde cholangiopancreatography (Acute) Transaminitis (Acute) Condition: Stable - Instructions Diet, Activity, Other Instructions: Dr. Billings Discharge Instructions Dear ANNITA JOSÉ, Post Operative Instructions Physical activity Resume your normal everyday activity as tolerated no heavy lifting or exercise until seen by your surgeon. You may walk unlimited amounts of and climb stairs. You may resume driving the car when you feel safe and comfortable behind the wheel. Wound care If you have a bandage, leave it on, and keep dry for 48 - 72 hours. After that time discard the outer bandage. If there are tapes on the skin under the outer bandage, leave them in place. They will peel off in the next 7 to 10 days. Do Not peel them off. You may shower 2 days after surgery. If there are tapes present on the skin, they can get wet. Diet There are no dietary restrictions. Eat healthy, high-fiber foods. Drink 6 to 8 glasses of liquid each day. This will assist in keeping your bowels are regular. Pain management You may take Tylenol or acetaminophen or Ibuprofen (for example, Motrin, Advil etc.) Any pain prescription medication ordered should be taken as prescribed for moderate to severe pain. Call Dr. Billings for any of the following: Severe pain not relieved by medication Fever of 101 or higher Excessive bleeding or drainage on dressing Inability to urinate Call the office at [phone] for a post operative appointment in 7 - 10 days. Medical Team We are giving you strong pain medications- percocet that you can take if the tylenol is not adequate. Take it not more than every 6 hours as needed. While you are taking percocet, you cannot drive or operate any heavy machinery While on percocet, increase your fiber diet, as percocet could make you have difficulty moving your bowels Follow up with your primary doctor in one week's time Folow up with the GI doctor in one week Follow up with the surgeon in one week Follow all the surgical instructions listed above If you have new/ worsening symptoms including fever, persistent abdominal pain despite use of pain medications Referrals: Raji Billings MD [Staff Physician] - 1 Week Jeremie Wood MD [Primary Care Provider] - 1 Week Karri Mcfarland MD [Staff Physician] - 1 Week Disposition: HOME - Home Medications Comprehensive Discharge Medication List: Ambulatory Orders oxyCODONE HCL [Roxicodone -] 5 mg PO Q4H PRN #30 tablet MDD 6 07/28/17 This patient is new to me today: No Emergency Visit: Yes ED Registration Date: 07/23/17 Care time: The patient presented to the Emergency Department on the above date and was hospitalized for further evaluation of their emergent condition. Critical Care patient: No - Discharge Referral Referred to [facility] Med P.[facility].: No
--- NOTE | 2017-07-28 12:44 | PN ---
Teaching Attending Note Name of Resident: Amina Osuna ATTENDING PHYSICIAN STATEMENT I saw and evaluated the patient. I reviewed the resident's note and discussed the case with the resident. I agree with the resident's findings and plan as documented. SUBJECTIVE:some pain with movement. no pain after eating. denies Cp, SOB< fever , chills, N/V/C/D. +burping OBJECTIVE: Last Vital Signs Temp Pulse Resp BP Pulse Ox 98.3 F 58 L 18 104/60 96 07/28/17 06:00 07/28/17 06:00 07/28/17 06:00 07/28/17 06:00 07/27/17 21:00 Intake & Output 07/25/17 07/26/17 07/27/17 07/28/17 23:59 23:59 23:59 23:59 Intake Total 1550 3675 3925 1000 Output Total 1010 120 Balance 1550 3675 2915 880 General NAD Abdomen soft +RUQ tenderness no rebound or guarding ASSESSMENT AND PLAN: 32 yo F with no significant PMHX here with Cholelithiasis and possible Acute cholecystitis +/- Choledochothiasis s/p ERCP with stones removal, unable to place pancreatic duct stent, for CCY on Wed if no concerns. 1. Cholelithiasis with likely Acute cholecysttiis- s/p laprascopic cholecystectomy 07/27. with LETICIA drain placed. minimal serosangenous drainage noted in the tube. plan to d/c drain today by surgery. percocet on discharge prn pain. explained risks assoc iwth narcotic use and side effects. 2. Choledocholithiasis, r/o cholangitis s/p ERCP with 6 stones removal 07/26. unable to place pancreatic stent. LFT normalizing. 3. Asymptomatic bradycardia- sinus john on EKG. improves with activity. no furtehr workup. 4. d/c home
[2017-07-28 13:49] VITALS: BP 118/68; PULSE 69; TEMP 98
[2017-07-28] MEDS: LACTATED RINGERS SOLUTION 1,000 ML IV SCH (17:35)
== END 2017-07-28 19:00 | disposition home or self-care (01) | DRG 263 ==
LOC: JER 16:44 → INTOOBSV 18:22 → JERBED 18:22 → J7W 21:08 → OBSVTOIN 07-23 08:20
PROVIDERS: ADMIT Hospitalist; ATTEND Internal Medicine
PROC: 0FC98ZZ Extirpation of Matter from Common Bile Duct, Via Natural or Artificial Opening Endoscopic (ICD-10-PCS; 2017-07-26)
PROC: 0F798ZZ Dilation of Common Bile Duct, Via Natural or Artificial Opening Endoscopic (ICD-10-PCS; 2017-07-26)
PROC: 0FT44ZZ Resection of Gallbladder, Percutaneous Endoscopic Approach (ICD-10-PCS; principal; 2017-07-27 11:30)
DX: K80.62 Calculus of gallbladder and bile duct with acute cholecystitis without obstruction (principal); E66.9 Obesity, unspecified; Z68.34 Body mass index [BMI] 34.0-34.9, adult; R00.1 Bradycardia, unspecified
CPT/HCPCS: 36415; 74181-TC; 74330-TC; 76705-TC; 80048; 80053; 80074; 80076; 81003; 81015; 82150; 82248; 83690; 83735; 84100; 84703; 85025; 85027; 85610; 85730; 86140; 86704; 86706; 86708; 86850; 86900; 86901; 87340; 88304-TC; 93005; 93010; 94010; 94760; 99284-25; G0378; J7030